=== PATIENT | female | born 1930 | race Hispanic/Latino ===

== ENCOUNTER 2018-08-16 13:43 | Inpatient (IN) | payer MEDICARE ==
[2018-08-16 13:43] VITALS: BMI 28.7
[2018-08-16] MEDS ORDERED: Sodium Chloride 0.9% 1,000 ML IV STA (14:38)
--- NOTE | 2018-08-16 14:51 | ED PDOC ---
HPI: Abdomen Time Seen by Provider: 08/16/18 14:26 Chief Complaint (Nursing): Abdominal Pain Chief Complaint (Provider): Abdominal Pain History Per: Patient History/Exam Limitations: no limitations Onset/Duration Of Symptoms: Days (x3) Location Of Pain/Discomfort: Other (left sided) Associated Symptoms: denies: Fever, Chills, Nausea, Vomiting, Constipation Additional Complaint(s): 87 year old female, with a past medical history of cholecystectomy, ventral hernia repair, and hiatal hernia repair, presents to the ED complaining of constant abdominal pain for 3 days. She denies fever, nausea, vomiting, diarrhea, or constipation. Patient reports she has a morales catheter in place which was changed yesterday. PMD: Beto Jacobs Past Medical History Reviewed: Historical Data, Nursing Documentation, Vital Signs Vital Signs: Last Vital Signs Temp 97.1 F L 08/16/18 13:44 Pulse 77 08/16/18 13:44 Resp 16 08/16/18 13:44 BP 136/76 08/16/18 13:44 Pulse Ox 98 08/16/18 13:44 - Medical History PMH: Anxiety, Arthritis, CAD, CHF, COPD, Depression, Diverticulitis, Gastritis, Hiatal Hernia, HTN, Hypercholesterolemia, Hypothyroidism Denies: HIV, Chronic Kidney Disease, Rheumatoid Arthritis - Surgical History Surgical History: Cholecystectomy, Coronary Stent (x 2), Hernia Repair (x2) Other surgeries: Hysterectomy - Family History Family History: States: Unknown Family Hx - Immunization History Hx Tetanus Toxoid Vaccination: No Hx Influenza Vaccination: No Hx Pneumococcal Vaccination: No - Home Medications Home Medications: Ambulatory Orders Medication Instructions Recorded Allopurinol 300 mg PO DAILY 08/26/15 Carvedilol [Coreg] 5 mg PO DAILY 12/08/15 Cranberry 1 cap PO DAILY 12/08/15 Furosemide [Lasix] 40 mg PO BID 12/08/15 Midodrine [Proamatine] 5 mg PO DAILY 12/08/15 Multivitamin [Multi-Vitamin Daily] 1 tab PO DAILY 12/08/15 Spironolactone [Aldactone] 50 mg PO BID 12/08/15 Aspirin [Aspirin Chewable] 81 mg PO DAILY 08/16/18 Docusate Sodium [Gonzales' 100 mg PO DAILY 08/16/18 Laxative] Prasugrel Hydrochloride [Effient] 5 mg PO DAILY 08/16/18 - Allergies Allergies/Adverse Reactions: Allergies Allergy/AdvReac Type Severity Reaction Status Date / Time metronidazole [From Flagyl] Allergy RASH Verified 08/16/18 13:44 nitrofurantoin Allergy RASH Verified 08/16/18 13:44 [From Macrobid] nitrofurantoin Allergy RASH Verified 08/16/18 13:44 macrocrystalline [From Macrobid] Review of Systems ROS Statement: Except As Marked, All Systems Reviewed And Found Negative Constitutional: Negative for: Fever Gastrointestinal: Positive for: Abdominal Pain. Negative for: Nausea, Vomiting, Diarrhea, Constipation Physical Exam - Reviewed Nursing Documentation Reviewed: Yes Vital Signs Reviewed: Yes - Physical Exam Appears: Positive for: No Acute Distress Head Exam: Positive for: ATRAUMATIC, NORMOCEPHALIC Skin: Positive for: Normal Color, Dry Eye Exam: Positive for: Normal appearance Neck: Positive for: Normal, Painless ROM Cardiovascular/Chest: Positive for: Regular Rate, Rhythm Respiratory: Positive for: Normal Breath Sounds. Negative for: Wheezing, R espiratory Distress Gastrointestinal/Abdominal: Positive for: Tenderness (LLQ). Negative for: Guarding, Rebound Extremity: Positive for: Normal ROM Neurological/Psych: Positive for: Awake, Alert, Normal Tone - Laboratory Results Result Diagrams: 08/18/18 07:30 08/18/18 07:30 - ECG O2 Sat by Pulse Oximetry: 98 (RA) Pulse Ox Interpretation: Normal Medical Decision Making Medical Decision Making: Initial Impression: Abdominal pain Initial Plan: --CT abd/pelvis --ECG --CMP --ED urine dipstick --CBC --PTT --Prothrombin time --Sodium chloride 1000mL IV --Urinalysis Patient has Morales Catheter in place and has clear yellow urine. 15:00 Patient signed out to Dr. hBatia. Pending CT and labs. Scribe Attestation: Documented by Hipolito Fletcher acting as a scribe for Bernarda Mariee MD. Provider Scribe Attestation: All medical record entries made by the Scribe were at my direction and personally dictated by me. I have reviewed the chart and agree that the record accurately reflects my personal performance of the history, physical exam, medical decision making, and the department course for this patient. I have also personally directed, reviewed, and agree with the discharge instructions and disposition. Disposition - Clinical Impression Clinical Impression: UTI (urinary tract infection), Diverticulitis - Disposition Disposition: Transfer of Care Disposition Time: 15:00 Condition: STABLE Patient Signed Over To: Ginna Bhatia
[2018-08-16 15:04] LABS: BASO # 0.1 K/uL (0.0-0.2); BASO % 0.8 % (0.0-2.0); EOS # 0.1 K/uL (0.0-0.7); EOS % 1.3 % (0.0-4.0); HEMOGLOBIN 12.7 g/dL (12.0-16.0); LYMPH # 2.6 K/uL (1.0-4.3); LYMPH % 35.5 % (20.0-40.0); MEAN CELL VOLUME 101.3 fl (81.0-99.0); MEAN CORPUSCULAR HEMOGLOBIN 32.9 pg (27.0-31.0); MEAN CORPUSCULAR HGB CONC 32.5 g/dL (33.0-37.0); MEAN PLATELET VOLUME 10.2 fl (7.2-11.7); MONO # 0.6 K/uL (0.0-0.8); MONO % 8.3 % (0.0-10.0); NEUT % 54.1 % (50.0-75.0); NRBC % 0.1 % (0.0-0.0); RBC 3.85 Mil/uL (3.80-5.20); WHITE BLOOD COUNT 7.4 K/uL (4.8-10.8)
[2018-08-16 15:12] LABS: ALB/GLOB RATIO 1.6 (1.0-2.1); ALBUMIN 5.1 g/dL (3.5-5.0); CALCIUM 10.4 mg/dL (8.4-10.2)
--- NOTE | 2018-08-16 15:15 | ED PDOC ---
- Laboratory Results Result Diagrams: 08/16/18 14:53 08/16/18 14:53 Lab Results: Total Bilirubin 0.7 mg/dl (0.2-1.3) 08/16/18 14:53 AST 22 U/L (14-36) 08/16/18 14:53 ALT 22 U/L (9-52) 08/16/18 14:53 Alkaline Phosphatase 77 U/L (38-126) 08/16/18 14:53 Total Protein 8.4 G/DL (6.3-8.2) H 08/16/18 14:53 Albumin 5.1 g/dL (3.5-5.0) H 08/16/18 14:53 Globulin 3.3 gm/dL (2.2-3.9) 08/16/18 14:53 Albumin/Globulin Ratio 1.6 (1.0-2.1) 08/16/18 14:53 - ECG ECG Rhythm: Positive for: Normal QRS, Normal ST Segment, Sinus Rhythm Rate: 70 O2 Sat by Pulse Oximetry: 98 (RA) Medical Decision Making Medical Decision Makin:00 Patient signed out to this provider from Dr. Mariee. Pending CT scan and labs. 20:06 CT abd/pelvis FINDINGS: LUNG BASES: Scarring at the right lung base. LIVER: Unremarkable. GALLBLADDER AND BILE DUCTS: Status post cholecystectomy. PANCREAS: Unremarkable. SPLEEN: Unremarkable. ADRENAL GLANDS: Unremarkable. KIDNEYS, URETERS, AND BLADDER: The kidneys appear within normal limits. There is no hydronephrosis or hydroureter. No urinary calculi are seen. Calvert catheter within the bladder. STOMACH AND BOWEL: There is thinning of the anterior abdominal wall with small ventral hernia and postsurgical mesh material along the anterior abdominal wall. There is no bowel obstruction. Diverticular changes are present within the sigmoid and descending colon with mild pericolonic stranding and wall thickening at the proximal sigmoid colon suspicious for diverticulitis. APPENDIX: No evidence of acute appendicitis on CT examination. PERITONEUM: No free fluid. No free air. LYMPH NODES: No lymphadenopathy is evident. REPRODUCTIVE: Unremarkable as visualized. VASCULATURE: No evidence of abdominal aortic aneurysm. BONES: Advanced hypertrophic and degenerative changes lumbar spine. IMPRESSION: Scarring right lung base. Status post cholecystectomy. Postsurgical changes anterior abdominal wall. Small ventral hernia. Diverticular changes sigmoid and descending colon with mild diverticulitis suspected at the proximal sigmoid colon. Calvert catheter within the bladder. Hypertrophic and degenerative changes lumbar spine. Clinical correlation advised. Labs demonstrated acute worsening of renal insufficiency DW son findings. LORENZA Jamison and pt admitted to hospital under in his service. DW pt/family plan of care. IV antibiotics, IVF, admission. Scribe Attestation: Documented by Hipolito Fletcher acting as a scribe for Ginna Bhatia MD. Provider Scribe Attestation: All medical record entries made by the Scribe were at my direction and personally dictated by me. I have reviewed the chart and agree that the record accurately reflects my personal performance of the history, physical exam, medical decision making, and the department course for this patient. I have also personally directed, reviewed, and agree with the discharge instructions and disposition. Disposition - Clinical Impression Clinical Impression: UTI (urinary tract infection), Diverticulitis - POA Present On Arrival: Cath Associated UTI - Disposition Disposition: Admitted as In-Patient Disposition Time: 21:00 Condition: FAIR
[2018-08-16 15:20] LABS: PROTHROMBIN TIME 11.8 Seconds (9.8-13.1)
[2018-08-16 15:23] LABS: PARTIAL THROMBOPLASTIN TIME 30.9 Seconds (25.6-37.1)
[2018-08-16] MEDS ORDERED: Iohexol 240 (50 ml) PO STA (15:23)
[2018-08-16] MEDS ORDERED: Iohexol 240 (50 ml) ONE (16:47)
--- NOTE | 2018-08-16 17:06 | CARD ---
APPROVED REPORT Date of service: 08/16/2018 EKG Measurement Heart [id number] <Conclusion> Normal sinus rhythm Normal ECG
[2018-08-16 17:16] LABS: SQUAMOUS EPITHIAL 1 /hpf (0-5); URINE BACTERIA OCC (<OCC); URINE BILIRUBIN NEGATIVE (NEGATIVE); URINE BLOOD NEGATIVE (NEGATIVE); URINE CLARITY SLIGHTY-CLOUDY (Clear); URINE COLOR YELLOW (YELLOW); URINE GLUCOSE (UA) NEG (NEGATIVE); URINE HYALINE CAST 0-2 /hpf (0-2); URINE LEUKOCYTE ESTERASE LARGE Leu/uL (Negative); URINE PROTEIN NEGATIVE (NEGATIVE); URINE UROBILINOGEN 0.2-1.0 mg/dL (0.2-1.0)
[2018-08-16] MEDS ORDERED: Ciprofloxacin 400mg/200ml D5W 400 MG/200 ML BAG IV STA (21:05)
[2018-08-16] MEDS ORDERED: Ciprofloxacin 400mg/200ml D5W 400 MG/200 ML BAG IVPB ONE (21:25)
--- NOTE | 2018-08-17 07:16 | CP.PCM.HP ---
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 Cellulitis of RLE Present on Admission - Present on Admission Any Indicators Present on Admission: Yes Urinary Catheter: Yes Past Patient History - Infectious Disease Hx of Infectious Diseases: None - Past Medical History & Family History Past Medical History?: Yes - Past Social History Smoking Status: Never Smoked - CARDIAC Hx Congestive Heart Failure: Yes Hx Hypercholesterolemia: Yes Hx Hypertension: Yes - PULMONARY Hx Chronic Obstructive Pulmonary Disease (COPD): Yes - NEUROLOGICAL HX Cerebrovascular Accident: No - HEENT Hx Cataracts: Yes - RENAL Hx Chronic Kidney Disease: No - ENDOCRINE/METABOLIC Hx Hypothyroidism: Yes - HEMATOLOGICAL/ONCOLOGICAL Hx Human Immunodeficiency Virus (HIV): No - INTEGUMENTARY Hx Dermatological Problems: Yes - MUSCULOSKELETAL/RHEUMATOLOGICAL Hx Arthritis: Yes Hx Falls: No Hx Rheumatoid Arthritis: No - GASTROINTESTINAL Hx Diverticulitis: Yes Hx Gastritis: Yes - GENITOURINARY/GYNECOLOGICAL Hx Genitourinary Disorders: Yes Hx Hematuria: Yes (history) Hx Urinary Tract Infection: Yes Other/Comment: Calvert catheter - PSYCHIATRIC Hx Anxiety: Yes Hx Depression: Yes Hx Substance Use: No - SURGICAL HISTORY Hx Cholecystectomy: Yes Hx Coronary Stent: Yes (x 2) - ANESTHESIA Hx Anesthesia: Yes Hx Anesthesia Reactions: No Hx Malignant Hyperthermia: No Meds Allergies/Adverse Reactions: Allergies Allergy/AdvReac Type Severity Reaction Status Date / Time metronidazole [From Flagyl] Allergy RASH Verified 08/16/18 13:44 nitrofurantoin Allergy RASH Verified 08/16/18 13:44 [From Macrobid] nitrofurantoin Allergy RASH Verified 08/16/18 13:44 macrocrystalline [From Macrobid] Results - Vital Signs Recent Vital Signs: Last Vital Signs Temp 97.6 F 08/17/18 01:16 Pulse 64 08/17/18 01:16 Resp 18 08/17/18 01:16 BP 125/77 08/17/18 01:16 Pulse Ox 97 08/17/18 01:16 - Labs Result Diagrams: 08/16/18 14:53 08/16/18 14:53 Labs: Laboratory Results - last 24 hr 08/16/18 08/16/18 08/16/18 14:53 14:53 14:53 WBC 7.4 RBC 3.85 Hgb 12.7 Hct 39.0 MCV 101.3 H D MCH 32.9 H MCHC 32.5 L RDW 16.0 H Plt Count 74 L D MPV 10.2 Neut % (Auto) 54.1 Lymph % (Auto) 35.5 Ashe % (Auto) 8.3 Eos % (Auto) 1.3 Baso % (Auto) 0.8 Neut # (Auto) 4.0 Lymph # (Auto) 2.6 Ashe # (Auto) 0.6 Eos # (Auto) 0.1 Baso # (Auto) 0.1 PT 11.8 INR 1.0 APTT 30.9 Sodium 135 Potassium 4.1 Chloride 98 Carbon Dioxide 20 L Anion Gap 21 H BUN 74 H Creatinine 2.1 H Est GFR ( Amer) 27 Est GFR (Non-Af Amer) 22 Random Glucose 140 H Calcium 10.4 H Total Bilirubin 0.7 AST 22 ALT 22 Alkaline Phosphatase 77 Total Protein 8.4 H Albumin 5.1 H Globulin 3.3 Albumin/Globulin Ratio 1.6 Urine Color Urine Clarity Urine pH Ur Specific Cecil Urine Protein Urine Glucose (UA) Urine Ketones Urine Blood Urine Nitrate Urine Bilirubin Urine Urobilinogen Ur Leukocyte Esterase Urine RBC (Auto) Urine Microscopic WBC Ur Squamous Epith Cells Urine Bacteria Hyaline Casts 08/16/18 17:00 WBC RBC Hgb Hct MCV MCH MCHC RDW Plt Count MPV Neut % (Auto) Lymph % (Auto) Ashe % (Auto) Eos % (Auto) Baso % (Auto) Neut # (Auto) Lymph # (Auto) Ashe # (Auto) Eos # (Auto) Baso # (Auto) PT INR APTT Sodium Potassium Chloride Carbon Dioxide Anion Gap BUN Creatinine Est GFR ( Amer) Est GFR (Non-Af Amer) Random Glucose Calcium Total Bilirubin AST ALT Alkaline Phosphatase Total Protein Albumin Globulin Albumin/Globulin Ratio Urine Color Yellow Urine Clarity Slighty-cloudy Urine pH 6.0 Ur Specific Cecil 1.010 Urine Protein Negative Urine Glucose (UA) Neg Urine Ketones Negative Urine Blood Negative Urine Nitrate Positive H Urine Bilirubin Negative Urine Urobilinogen 0.2-1.0 Ur Leukocyte Esterase Large Urine RBC (Auto) 3 Urine Microscopic WBC 68 H Ur Squamous Epith Cells 1 Urine Bacteria Occ H Hyaline Casts 0-2 Assessment & Plan (1) Diverticulitis Status: Acute (2) Essential (primary) hypertension Status: Acute (3) Generalized anxiety disorder Status: Acute
[2018-08-17 08:03] LABS: URINE BACTERIA RARE (<OCC); URINE BILIRUBIN NEGATIVE (NEGATIVE); URINE BLOOD NEGATIVE (NEGATIVE); URINE CLARITY CLEAR (Clear); URINE COLOR YELLOW (YELLOW); URINE GLUCOSE (UA) NEG (NEGATIVE); URINE LEUKOCYTE ESTERASE SMALL Leu/uL (Negative); URINE PROTEIN NEGATIVE (NEGATIVE); URINE UROBILINOGEN 0.2-1.0 mg/dL (0.2-1.0)
[2018-08-17] MEDS: Ciprofloxacin 400mg/200ml D5W 400 MG/200 ML BAG IVPB SCH ×2 (08:41→20:15)
--- NOTE | 2018-08-17 10:42 | PQF ---
PROVIDER RESPONSE TEXT: Provider was unable to determine a response for this query. REVIEWER QUERY TEXT: Conflicting Documentation Clarification A single mention of: Catheter Associated UTI is documented in the ER record and then the dx. is dropp ed. Please document if the condition is: -- Confirmed and current -- Confirmed, treated and resolved -- Ruled out -- Other, please specify H and P includes: admitted with UTI and diverticulitis The patient's Clinical Indicators include: --- Query created by: Yareli Barajas on 08/17/2018 9:56 AM Electronically signed by: Beto Jamison MD 08/17/2018 10:39 AM
--- NOTE | 2018-08-17 10:58 | CT ---
Date of service: 08/16/2018 PROCEDURE: CT Abdomen and Pelvis with contrast HISTORY: Left lower quadrant pain. COMPARISON: 06/01/2016. CT abdomen and pelvis. TECHNIQUE: Oral contrast only. Radiation dose: Total exam DLP = <inf_radiation_dlp> mGy-cm. This CT exam was performed using one or more of the following dose reduction techniques: Automated exposure control, adjustment of the mA and/or kV according to patient size, and/or use of iterative reconstruction technique. FINDINGS: LOWER THORAX: Unremarkable. LIVER: Unremarkable. No gross lesion or ductal dilatation. GALLBLADDER AND BILE DUCTS: Unremarkable. PANCREAS: Unremarkable. No gross lesion or ductal dilatation. SPLEEN: Unremarkable. ADRENALS: Unremarkable. No mass. KIDNEYS AND URETERS: Unremarkable. No hydronephrosis. No solid mass. VASCULATURE: Unremarkable. No aortic aneurysm. Atherosclerotic calcification and mural plaque present. Findings are seen throughout the aorta which is non aneurysmal. Calcified iliac vessels also identified. BOWEL: Acute diverticulitis limited to a short segment of the distal descending colon and adjacent sigmoid. APPENDIX: No abnormalities to suggest acute appendicitis. No right lower quadrant inflammatory processes identified. PERITONEUM: Unremarkable. No free fluid. No free air. LYMPH NODES: Unremarkable. No enlarged lymph nodes. BLADDER: Calvert catheter identified in a decompressed urinary bladder. No abnormalities identified with respect to the bladder wall and intraluminal contents. REPRODUCTIVE: Prior hysterectomy. BONES: No acute fracture. Multilevel degenerative change. OTHER FINDINGS: None. IMPRESSION: Acute sigmoid diverticulitis. No evidence of associated loculated air, free air, free fluid or drainable collection. Additional benign and/or incidental findings described above. Concordant results (preliminary interpretation) provided by [employer]. Procedure Completed: 19:15. Preliminary Report: Interpreted and electronically signed: 20:06. Final Interpretation: 10:56. August 17, 2018.
[2018-08-17] MEDS: Enoxaparin 30 mg Syringe SC SCH (11:13)
[2018-08-17] MEDS: Sodium Chloride 0.9% 1,000 ML IV SCH (13:36)
--- NOTE | 2018-08-17 16:54 | RAD ---
Date of service: 08/17/2018 PROCEDURE: Radiographs of the Chest and Left Ribs. HISTORY: L ribs pain COMPARISON: 12/06/2017. Two-view chest. TECHNIQUE: Frontal radiograph of the chest and multiple oblique radiographs of the left ribs were obtained. 4 views obtained. FINDINGS: LEFT RIBS: No fracture or focal lesion visualized. LUNGS: Clear. PLEURA: No pneumothorax or pleural fluid. CARDIOVASCULAR: Normal cardiac size. No pulmonary vascular congestion. Tortuous, densely calcified thoracic aorta. OTHER FINDINGS: None. IMPRESSION: Unremarkable radiographs of the chest and left ribs. No left rib fracture.
[2018-08-18] MEDS: Sodium Chloride 0.9% 1,000 ML IV SCH ×2 (04:24→04:56)
--- NOTE | 2018-08-18 06:21 | CON ---
DATE: 08/17/2018 REFERRING PHYSICIAN: Beto Jamison MD REASON FOR CONSULTATION: Abdominal pain. HISTORY OF PRESENT ILLNESS: This is an 87-year-old female, who is brought in for abdominal pain and discomfort in the left lower quadrant. Pain is improving. Diarrhea is improving as well but he still has some discomfort and fullness. She is feeling better, lying in bed comfortably. No apparent distress. PAST MEDICAL HISTORY: As above. PAST SURGICAL HISTORY: As above. MEDICATIONS: Have been reviewed. REVIEW OF SYSTEMS: All other systems have been reviewed and negative apart from the HPI. PHYSICAL EXAMINATION: VITAL SIGNS: Here in the hospital, grossly unremarkable. GENERAL: This is a pleasant elderly female, lying in bed comfortably, in no apparent distress. HEENT: Head: Normocephalic and atraumatic. Eyes: Pupils are equally reactive to light bilaterally. No conjunctival pallor or icterus. NECK: Supple. Normal range of motion. No lymphadenopathy appreciated. LUNGS: Coarse breath sounds bilaterally. HEART: S1 and S2. Regular rate and rhythm. No murmurs appreciated. ABDOMEN: Soft and nontender. Bowel sounds present. Some discomfort in the left lower quadrant. No rebound. No guarding. RECTAL: Deferred. EXTREMITIES: Pulses felt bilaterally. SKIN: Warm, dry and intact. NEUROLOGIC: A and O x3. LABORATORY DATA: Labs and radiology have been reviewed. WBC 7.4. CAT scan shows sigmoid diverticulitis. ASSESSMENT AND PLAN: This is an 87-year-old female with sigmoid diverticulitis. Antibiotics for now. Advance diet as tolerated. Outpatient colonoscopy. Thank you for the consult. Lanre Montague MD/ PhD cc: Beto Jamison MD
[2018-08-18 08:51] LABS: HEMOGLOBIN 11.7 g/dL (12.0-16.0); MEAN CELL VOLUME 101.7 fl (81.0-99.0); MEAN CORPUSCULAR HEMOGLOBIN 33.8 pg (27.0-31.0); MEAN CORPUSCULAR HGB CONC 33.3 g/dL (33.0-37.0); RBC 3.47 Mil/uL (3.80-5.20); WHITE BLOOD COUNT 3.9 K/uL (4.8-10.8)
[2018-08-18 09:00] LABS: CALCIUM 9.8 mg/dL (8.4-10.2)
--- NOTE | 2018-08-18 09:17 | CP.PCM.PN ---
Subjective - Date & Time of Evaluation Date of Evaluation: 08/18/18 Time of Evaluation: 08:50 - Subjective Subjective: The patient was found comfortably resting in bed having finished her liquid breakfast. She denies any nausea vomiting but continues to experienced left lower quadrant discomfort. She awaits a GI evaluation. She denied any chills or fever and does not have leukocytosis. With hydration her BUN/creatinine have significantly improved. Her vital signs were stable and she tolerates current treatment. Patient has declined Plavix yesterday. She is on DVT prophylaxis with Lovenox. Objective - Vital Signs/Intake and Output Vital Signs (last 24 hours): Temp Pulse Resp BP Pulse Ox 98.2 F 63 18 116/70 96 08/18/18 08:25 08/18/18 08:25 08/18/18 08:25 08/18/18 08:25 08/18/18 08:25 - Medications Medications: Current Medications Acetaminophen (Tylenol 325mg Tab) 650 mg PO Q6 PRN PRN Reason: Pain, moderate (4-7) Last Admin: 08/17/18 23:37 Dose: 650 mg Aspirin (Aspirin Chewable) 81 mg PO DAILY [facility] Last Admin: 08/17/18 10:57 Dose: 81 mg Clopidogrel Bisulfate (Plavix) 75 mg PO DAILY [facility] Last Admin: 08/17/18 19:00 Dose: Not Given Enoxaparin Sodium (Lovenox) 30 mg SC DAILY [facility]; Protocol Last Admin: 08/17/18 11:13 Dose: 30 mg Ciprofloxacin (Cipro 400mg/200ml Dsw) 400 mg in 200 mls @ 200 mls/hr IVPB Q12 [facility]; Protocol Last Admin: 08/17/18 20:15 Dose: 200 mls/hr Sodium Chloride (Sodium Chloride 0.9%) 1,000 mls @ 75 mls/hr IV .[id number] [facility] Stop: 08/18/18 13:23 Last Admin: 08/18/18 04:56 Dose: Not Given - Labs Labs: 08/18/18 07:30 08/18/18 07:30 PT 11.8 Seconds (9.8-13.1) 08/16/18 14:53 INR 1.0 08/16/18 14:53 APTT 30.9 Seconds (25.6-37.1) 08/16/18 14:53
[2018-08-18] MEDS: Ciprofloxacin 400mg/200ml D5W 400 MG/200 ML BAG IVPB SCH ×2 (09:34→21:23)
[2018-08-18] MEDS: Enoxaparin 30 mg Syringe SC SCH (09:35)
[2018-08-19] MEDS: Ciprofloxacin 400mg/200ml D5W 400 MG/200 ML BAG IVPB SCH ×2 (09:50→21:24)
[2018-08-19] MEDS: Enoxaparin 30 mg Syringe SC SCH (09:50)
--- NOTE | 2018-08-19 12:58 | CP.PCM.PN ---
Subjective - Date & Time of Evaluation Date of Evaluation: 08/19/18 Time of Evaluation: 11:50 - Subjective Subjective: Has developed a rash on the left flank as well as left side of the abdomen. The appearance of the rash is strongly suggestive of zoster. Patient's vital signs are stable and the abdominal pain is less pronounced. She tolerates oral feedings well. I have requested Dr. Simon to evaluate and manage her zoster rash. Objective - Vital Signs/Intake and Output Vital Signs (last 24 hours): Temp Pulse Resp BP Pulse Ox 98.3 F 73 18 115/72 94 L 08/19/18 11:31 08/19/18 07:52 08/19/18 07:52 08/19/18 07:52 08/19/18 07:52 - Medications Medications: Current Medications Acetaminophen (Tylenol 325mg Tab) 650 mg PO Q6 PRN PRN Reason: Pain, moderate (4-7) Last Admin: 08/19/18 11:31 Dose: 650 mg Aspirin (Aspirin Chewable) 81 mg PO DAILY [facility] Last Admin: 08/19/18 09:50 Dose: 81 mg Clopidogrel Bisulfate (Plavix) 75 mg PO DAILY [facility] Last Admin: 08/19/18 09:51 Dose: 75 mg Enoxaparin Sodium (Lovenox) 30 mg SC DAILY [facility]; Protocol Last Admin: 08/19/18 09:50 Dose: 30 mg Ciprofloxacin (Cipro 400mg/200ml Dsw) 400 mg in 200 mls @ 200 mls/hr IVPB Q12 [facility]; Protocol Last Admin: 08/19/18 09:50 Dose: 200 mls/hr - Labs Labs: 08/18/18 07:30 08/18/18 07:30 PT 11.8 Seconds (9.8-13.1) 08/16/18 14:53 INR 1.0 08/16/18 14:53 APTT 30.9 Seconds (25.6-37.1) 08/16/18 14:53
--- NOTE | 2018-08-19 13:00 | CP.PCM.CON ---
History of Present Illness - History of Present Illness History of Present Illness: 87 year old female, with a past medical history of cholecystectomy, ventral hernia repair, and hiatal hernia repair, presents to the ED complaining of constant abdominal pain for 3 days. She was found to have diverticulitis by CT and today c/o rash on left side of upper abdomen - Medical History PMH: Anxiety, Arthritis, CAD, CHF, COPD, Depression, Diverticulitis, Gastritis, Hiatal Hernia, HTN, Hypercholesterolemia, Hypothyroidism Denies: HIV, Chronic Kidney Disease, Rheumatoid Arthritis - Surgical History Surgical History: Cholecystectomy, Coronary Stent (x 2), Hernia Repair (x2) Other surgeries: Hysterectomy Review of Systems - Review of Systems All systems: reviewed and no additional remarkable complaints except - Constitutional Constitutional: As Per HPI - EENT Eyes: absent: As Per HPI, Blind Spots, Blurred Vision, Change in Vision, Decreased Night Vision, Diplopia, Discharge, Dry Eye, Exophthalmos, Floaters, Irritation, Itchy Eyes, Loss of Peripheral Vision, Pain, Photophobia, Requires Corrective Lenses, Sees Flashes, Spots in Vision, Tunnel Vision, Other Visual Disturbances, Loss of Vision, Other Ears: absent: As Per HPI, Decreased Hearing, Ear Discharge, Ear Pain, Tinnitus, Abnormal Hearing, Disequilibrium, Dizziness, Other Nose/Mouth/Throat: absent: As Per HPI, Epistaxis, Nasal Congestion, Nasal Discharge, Nasal Obstruction, Nasal Trauma, Nose Pain, Post Nasal Drip, Sinus Pain, Sinus Pressure, Bleeding Gums, Change in Voice, Dental Pain, Dry Mouth, Dysphagia, Halitosis, Hoarsness, Lip Swelling, Mouth Lesions, Mouth Pain, Odynophagia, Sore Throat, Throat Swelling, Tongue Swelling, Facial Pain, Neck Pain, Neck Mass, Other - Breasts Breasts: absent: As Per HPI, Change in Shape, Mass, Pain, Nipple Discharge, Nipple Inversion, Skin Changes, Swelling, Other - Cardiovascular Cardiovascular: As Per HPI - Respiratory Respiratory: absent: As Per HPI, Cough, Dyspnea, Hemoptysis, Dyspnea on Exertion, Wheezing, Snoring, Stridor, Pain on Inspiration, Chest Congestion, Excessive Mucous Production, Change in Mucous Color, Pain with Coughing, Other - Gastrointestinal Gastrointestinal: As Per HPI, Abdominal Pain - Genitourinary Genitourinary: As Per HPI - Reproductive: Female Reproductive:Female: absent: As Per HPI, Amenorrhea, Amenorrhea/ Control, Currently Menstual, Cycle <21 Days, Cycle >35 Days, Cycle Variable, Menses 1-7 Days, Menses >/= 8 Days, Menses Variable, Cycle > 4 Weeks Between, No Menses for 6 Months, Heavy Menses, Light Menses, Normal Menses, Spotting Between Cycles, S/P Hysterectomy, Menopausal, Post Menopausal, Premenarche, Abnormal Vaginal Bleeding, Dysmenorrhea, Dyspareunia, Genital Lesions, Genital Pruritis, Pelvic Pain, Prolapse Symptoms, Sexual Dysfunction, Vaginal Discharge, Vaginal Dryness, Vaginal Odor, Vaginal Pruritis, Other - Menstruation Menstruation: absent: As Per HPI, Amenorrhea, Amenorrhea/ Control, Currently Menstual, Cycle <21 Days, Cycle >35 Days, Cycle Variable, Menses 1-7 Days, Menses >/= 8 Days, Menses Variable, Cycle > 4 Weeks Between, No Menses for 6 Months, Heavy Menses, Light Menses, Normal Menses, Spotting Between Cycles, S/P Hysterectomy, Menopausal, Post Menopausal, Premenarche, Abnormal Vaginal Bleeding, Dysmenorrhea, Other - Musculoskeletal Musculoskeletal: absent: As Per HPI, Abnormal Gait, Arthralgias, Atrophy, Back Pain, Deformity, Joint Swelling, Limited Range of Motion, Loss of Height, Muscle Cramps, Muscle Weakness, Myalgias, Neck Pain, Numbness, Radiating Pain into Limb, Stiffness, Tingling, Other - Integumentary Integumentary: As Per HPI, Rash, Skin Pain - Neurological Neurological: absent: As Per HPI, Abnormal Gait, Abnormal Hearing, Abnormal Movements, Abnormal Speech, Behavioral Changes, Burning Sensations, Confusion, Convulsions, Disequilibrium, Dizziness, Numbness, Focal Weakness, Frequent Falls, Headaches, Lack of Coordination, Loss of Vision, Memory Loss, Paresthesias, Radicular Pain, Restless Legs, Sensory Deficit, Syncope, Tingling, Tremor, Vertigo, Weakness, Other Visual Disturbances, Other - Psychiatric Psychiatric: absent: As Per HPI, Abnormal Sleep Pattern, Anhedonia, Anxiety, Auditory Hallucinations, Behavioral Changes, Change in Appetite, Change in Libido, Confusion, Depression, Difficulty Concentrating, Hallucinations, Homicidal Ideation, Hopelessness, Irritability, Memory Loss, Mood Swings, Panic Attacks, Paranoia, Suicidal Ideation, Visual Hallucinations, Tactile Hallucinations, Other - Endocrine Endocrine: absent: As Per HPI, Change in Body Appearance, Change in Libido, Cold Intolorance, Deepening of Voice, Excessive Sweating, Fatigue, Flushing, Heat Intolorance, Increase in Ring/Shoe/Hat Size, Palpitations, Polydipsia, Polyphagia, Polyuria, Other - Hematologic/Lymphatic Hematologic: absent: As Per HPI, Easy Bleeding, Easy Bruising, Lymphadenopathy, Other Past Patient History - Infectious Disease Hx of Infectious Diseases: None - Past Medical History & Family History Past Medical History?: Yes - Past Social History Smoking Status: Never Smoked - CARDIAC Hx Congestive Heart Failure: Yes Hx Hypercholesterolemia: Yes Hx Hypertension: Yes - PULMONARY Hx Chronic Obstructive Pulmonary Disease (COPD): Yes - NEUROLOGICAL HX Cerebrovascular Accident: No - HEENT Hx Cataracts: Yes - RENAL Hx Chronic Kidney Disease: No - ENDOCRINE/METABOLIC Hx Hypothyroidism: Yes - HEMATOLOGICAL/ONCOLOGICAL Hx Human Immunodeficiency Virus (HIV): No - INTEGUMENTARY Hx Dermatological Problems: Yes - MUSCULOSKELETAL/RHEUMATOLOGICAL Hx Arthritis: Yes Hx Falls: No Hx Rheumatoid Arthritis: No - GASTROINTESTINAL Hx Diverticulitis: Yes Hx Gastritis: Yes - GENITOURINARY/GYNECOLOGICAL Hx Genitourinary Disorders: Yes Hx Hematuria: Yes (history) Hx Urinary Tract Infection: Yes Other/Comment: Calvert catheter - PSYCHIATRIC Hx Anxiety: Yes Hx Depression: Yes Hx Substance Use: No - SURGICAL HISTORY Hx Cholecystectomy: Yes Hx Coronary Stent: Yes (x 2) - ANESTHESIA Hx Anesthesia: Yes Hx Anesthesia Reactions: No Hx Malignant Hyperthermia: No Meds Allergies/Adverse Reactions: Allergies Allergy/AdvReac Type Severity Reaction Status Date / Time metronidazole [From Flagyl] Allergy RASH Verified 08/16/18 13:44 nitrofurantoin Allergy RASH Verified 08/16/18 13:44 [From Macrobid] nitrofurantoin Allergy RASH Verified 08/16/18 13:44 macrocrystalline [From Macrobid] - Medications Medications: Current Medications Acetaminophen (Tylenol 325mg Tab) 650 mg PO Q6 PRN PRN Reason: Pain, moderate (4-7) Last Admin: 08/19/18 11:31 Dose: 650 mg Acyclovir (Zovirax) 800 mg PO 5XD [facility]; Protocol Aspirin (Aspirin Chewable) 81 mg PO DAILY [facility] Last Admin: 03/31/19 09:50 Dose: 81 mg Clopidogrel Bisulfate (Plavix) 75 mg PO DAILY [facility] Last Admin: 08/19/18 09:51 Dose: 75 mg Enoxaparin Sodium (Lovenox) 30 mg SC DAILY [facility]; Protocol Last Admin: 08/19/18 09:50 Dose: 30 mg Ciprofloxacin (Cipro 400mg/200ml Dsw) 400 mg in 200 mls @ 200 mls/hr IVPB Q12 [facility]; Protocol Last Admin: 08/19/18 09:50 Dose: 200 mls/hr Metronidazole (Flagyl 500mg/100ml Ns) 100 mls @ 100 mls/hr IVPB Q8 [facility]; Protocol Physical Exam - Constitutional Appears: Non-toxic, No Acute Distress, Chronically Ill - Head Exam Head Exam: ATRAUMATIC, NORMAL INSPECTION, NORMOCEPHALIC - Eye Exam Eye Exam: EOMI, PERRL Pupil Exam: NORMAL ACCOMODATION - ENT Exam ENT Exam: Mucous Membranes Dry, Normal External Ear Exam - Neck Exam Neck exam: Negative for: Lymphadenopathy - Respiratory Exam Respiratory Exam: Decreased Breath Sounds, Clear to Auscultation Bilateral - Cardiovascular Exam Cardiovascular Exam: REGULAR RHYTHM, +S1, +S2 - GI/Abdominal Exam GI & Abdominal Exam: Diminished Bowel Sounds, Distended, Guarding, Soft, Tenderness. absent: Organomegaly, Pulsatile Mass, Rebound, Rigid - Rectal Exam Rectal Exam: Deferred - Exam Exam: NORMAL INSPECTION - Extremities Exam Extremities exam: Negative for: pedal edema - Back Exam Back exam: absent: CVA tenderness (L), CVA tenderness (R), paraspinal tenderness - Neurological Exam Neurological exam: Alert, CN II-XII Intact, Oriented x3, Reflexes Normal - Psychiatric Exam Psychiatric exam: Depressed - Skin Skin Exam: Rash Additional comments: rash in dermatomal distrib left abd consistent with VZV Results - Vital Signs Recent Vital Signs: Last Vital Signs Temp 98.3 F 08/19/18 11:31 Pulse 73 08/19/18 07:52 Resp 18 08/19/18 07:52 BP 115/72 08/19/18 07:52 Pulse Ox 94 L 08/19/18 07:52 - Labs Result Diagrams: 08/18/18 07:30 08/18/18 07:30 Assessment & Plan (1) Varicella-zoster infection Status: Acute (2) Shingles Status: Acute (3) Shingles outbreak Status: Acute (4) Diverticulitis Status: Acute - Assessment and Plan (Free Text) Assessment: cont IV antibiotics pain management isolation for VZV add Acyclovir PO
--- NOTE | 2018-08-19 14:40 | CP.PCM.PN ---
Subjective - Date & Time of Evaluation Date of Evaluation: 08/19/18 Time of Evaluation: 12:30 - Subjective Subjective: rash on abdomen Objective - Vital Signs/Intake and Output Vital Signs (last 24 hours): Temp Pulse Resp BP Pulse Ox 98.3 F 73 18 115/72 94 L 08/19/18 11:31 08/19/18 07:52 08/19/18 07:52 08/19/18 07:52 08/19/18 07:52 - Medications Medications: Current Medications Acetaminophen (Tylenol 325mg Tab) 650 mg PO Q6 PRN PRN Reason: Pain, moderate (4-7) Last Admin: 08/19/18 11:31 Dose: 650 mg Acyclovir (Zovirax) 800 mg PO 5XD [facility]; Protocol Aspirin (Aspirin Chewable) 81 mg PO DAILY [facility] Last Admin: 08/19/18 09:50 Dose: 81 mg Clopidogrel Bisulfate (Plavix) 75 mg PO DAILY [facility] Last Admin: 08/19/18 09:51 Dose: 75 mg Enoxaparin Sodium (Lovenox) 30 mg SC DAILY [facility]; Protocol Last Admin: 08/19/18 09:50 Dose: 30 mg Ciprofloxacin (Cipro 400mg/200ml Dsw) 400 mg in 200 mls @ 200 mls/hr IVPB Q12 [facility]; Protocol Last Admin: 08/19/18 09:50 Dose: 200 mls/hr Metronidazole (Flagyl 500mg/100ml Ns) 100 mls @ 100 mls/hr IVPB Q8 [facility]; Protocol - Labs Labs: 08/18/18 07:30 08/18/18 07:30 PT 11.8 Seconds (9.8-13.1) 08/16/18 14:53 INR 1.0 08/16/18 14:53 APTT 30.9 Seconds (25.6-37.1) 08/16/18 14:53 - Head Exam Head Exam: NORMOCEPHALIC - Respiratory Exam Respiratory Exam: Clear to Ausculation Bilateral, NORMAL BREATHING PATTERN - Cardiovascular Exam Cardiovascular Exam: REGULAR RHYTHM - GI/Abdominal Exam GI & Abdominal Exam: Soft, Tenderness, Normal Bowel Sounds Additional comments: skin on abdomen with erythema Assessment and Plan - Assessment and Plan (Free Text) Assessment: 87 yo female with diverticulitis abx ? shingles
[2018-08-19] MEDS: metroNIDAZOLE 500mg/100ml NS 100 ML IVPB SCH ×3 (17:13→17:45)
--- NOTE | 2018-08-20 07:30 | PQF ---
PROVIDER RESPONSE TEXT: Sacral ulcer ruled out REVIEWER QUERY TEXT: Pressure Ulcer Type Sacral Pressure ulcer is documented in a Physician order: reason for exam: Sacral Decubiti ; versus t he 08/17 supervisory investigative specialistsupervisor [place] :Sacrum clean and intact. Please clarify if the Pressure Ulcer is ruled in or ruled out. If ruled in Stage of the Pressure Ulcer. -- Other explanation of clinical finding Stage of each pressure ulcer (National Pressure Ulcer Advisory Panel definitions): -- Stage I: Intact skin with non-blanchable redness of a localized area -- Stage II: Partial thickness skin loss involving dermis with a shallow open ulcer or an open serum -filled blister -- Stage III: Full thickness skin loss involving damage or necrosis of subcutaneous tissue -- Stage IV: Full thickness skin loss with exposed bone, tendon or muscle -- Unstageable: Full thickness tissue loss in which the base of the ulcer is covered by slough and/o r eschar in the wound bed The patient's Clinical Indicators include: --- Query created by: Yareli Barajas on 08/17/2018 3:17 PM Electronically signed by: Beto Jamison MD 08/20/2018 7:28 AM
[2018-08-20] MEDS: Enoxaparin 30 mg Syringe SC SCH (10:30)
[2018-08-20] MEDS: Ciprofloxacin 400mg/200ml D5W 400 MG/200 ML BAG IVPB SCH ×2 (10:31→20:28)
--- NOTE | 2018-08-20 14:03 | CP.PCM.PN ---
Subjective - Date & Time of Evaluation Date of Evaluation: 08/20/18 Time of Evaluation: 10:00 - Subjective Subjective: pt resting in bed rash from Shingles persists but less pain is present but slightly better pt is on isolation Objective - Vital Signs/Intake and Output Vital Signs (last 24 hours): Temp Pulse Resp BP Pulse Ox 97.8 F 70 20 123/76 96 08/20/18 08:23 08/20/18 08:23 08/20/18 08:23 08/20/18 08:23 08/20/18 08:23 Intake and Output: 08/20/18 08/20/18 06:59 18:59 Intake Total 800 Output Total 1300 Balance -500 - Medications Medications: Current Medications Acetaminophen (Tylenol 325mg Tab) 650 mg PO Q6 PRN PRN Reason: Pain, moderate (4-7) Last Admin: 08/20/18 10:32 Dose: 650 mg Acyclovir (Zovirax) 800 mg PO 5XD [facility]; Protocol Last Admin: 08/20/18 12:40 Dose: 800 mg Aspirin (Aspirin Chewable) 81 mg PO DAILY [facility] Last Admin: 08/20/18 10:30 Dose: 81 mg Clopidogrel Bisulfate (Plavix) 75 mg PO DAILY [facility] Last Admin: 08/20/18 10:31 Dose: 75 mg Enoxaparin Sodium (Lovenox) 30 mg SC DAILY [facility]; Protocol Last Admin: 08/20/18 10:30 Dose: 30 mg Ciprofloxacin (Cipro 400mg/200ml Dsw) 400 mg in 200 mls @ 200 mls/hr IVPB Q12 [facility]; Protocol Last Admin: 08/20/18 10:31 Dose: Not Given - Labs Labs: 08/18/18 07:30 08/18/18 07:30 PT 11.8 Seconds (9.8-13.1) 08/16/18 14:53 INR 1.0 08/16/18 14:53 APTT 30.9 Seconds (25.6-37.1) 08/16/18 14:53 Assessment and Plan (1) Diverticulitis Status: Acute (2) Essential (primary) hypertension Status: Acute (3) Generalized anxiety disorder Status: Acute (4) Shingles Status: Acute (5) Varicella-zoster infection Status: Acute
[2018-08-21 06:54] LABS: HEMOGLOBIN 12.3 g/dL (12.0-16.0); MEAN CELL VOLUME 102.5 fl (81.0-99.0); MEAN CORPUSCULAR HEMOGLOBIN 33.2 pg (27.0-31.0); MEAN CORPUSCULAR HGB CONC 32.4 g/dL (33.0-37.0); RBC 3.7 Mil/uL (3.80-5.20); RED CELL DISTRIBUTION WIDTH 15.9 % (11.5-14.5); WHITE BLOOD COUNT 4.3 K/uL (4.8-10.8)
[2018-08-21 07:10] LABS: CALCIUM 9.7 mg/dL (8.4-10.2)
--- NOTE | 2018-08-21 10:13 | CP.PCM.PN ---
Subjective - Date & Time of Evaluation Date of Evaluation: 08/21/18 Time of Evaluation: 10:12 - Subjective Subjective: no overnight events Objective - Vital Signs/Intake and Output Vital Signs (last 24 hours): Temp Pulse Resp BP Pulse Ox 98.0 F 78 20 127/67 96 08/21/18 08:38 08/21/18 08:38 08/21/18 08:38 08/21/18 08:38 08/21/18 08:38 Intake and Output: 08/21/18 08/21/18 06:59 18:59 Intake Total 400 Output Total 400 Balance 0 - Medications Medications: Current Medications Acetaminophen (Tylenol 325mg Tab) 650 mg PO Q6 PRN PRN Reason: Pain, moderate (4-7) Last Admin: 08/20/18 23:09 Dose: 650 mg Acyclovir (Zovirax) 800 mg PO 5XD [facility]; Protocol Last Admin: 08/21/18 05:29 Dose: 800 mg Aspirin (Aspirin Chewable) 81 mg PO DAILY [facility] Last Admin: 08/20/18 10:30 Dose: 81 mg Clopidogrel Bisulfate (Plavix) 75 mg PO DAILY [facility] Last Admin: 08/20/18 10:31 Dose: 75 mg Enoxaparin Sodium (Lovenox) 30 mg SC DAILY [facility]; Protocol Last Admin: 08/20/18 10:30 Dose: 30 mg Ciprofloxacin (Cipro 400mg/200ml Dsw) 400 mg in 200 mls @ 200 mls/hr IVPB Q12 [facility]; Protocol Last Admin: 08/20/18 20:28 Dose: 200 mls/hr - Labs Labs: 08/21/18 06:10 08/21/18 06:10 PT 11.8 Seconds (9.8-13.1) 08/16/18 14:53 INR 1.0 08/16/18 14:53 APTT 30.9 Seconds (25.6-37.1) 08/16/18 14:53 - Head Exam Head Exam: NORMOCEPHALIC - Neck Exam Neck Exam: Normal Inspection - Respiratory Exam Respiratory Exam: Clear to Ausculation Bilateral, NORMAL BREATHING PATTERN - Cardiovascular Exam Cardiovascular Exam: REGULAR RHYTHM - GI/Abdominal Exam GI & Abdominal Exam: Soft, Normal Bowel Sounds Assessment and Plan - Assessment and Plan (Free Text) Assessment: 87 yo female with diverticulitis resolving diverticulitis dc planning once able
[2018-08-21] MEDS: Enoxaparin 30 mg Syringe SC SCH (10:16)
[2018-08-21] MEDS: Ciprofloxacin 400mg/200ml D5W 400 MG/200 ML BAG IVPB SCH ×2 (10:16→21:37)
--- NOTE | 2018-08-21 11:28 | CP.PCM.PN ---
Subjective - Date & Time of Evaluation Date of Evaluation: 08/21/18 Time of Evaluation: 09:00 - Subjective Subjective: afebrile less pain no fever Objective - Vital Signs/Intake and Output Vital Signs (last 24 hours): Temp Pulse Resp BP Pulse Ox 98.0 F 78 20 127/67 96 08/21/18 08:38 08/21/18 08:38 08/21/18 08:38 08/21/18 08:38 08/21/18 08:38 Intake and Output: 08/21/18 08/21/18 06:59 18:59 Intake Total 400 Output Total 400 Balance 0 - Medications Medications: Current Medications Acetaminophen (Tylenol 325mg Tab) 650 mg PO Q6 PRN PRN Reason: Pain, moderate (4-7) Last Admin: 08/20/18 23:09 Dose: 650 mg Acyclovir (Zovirax) 800 mg PO 5XD [facility]; Protocol Last Admin: 08/21/18 10:16 Dose: 800 mg Aspirin (Aspirin Chewable) 81 mg PO DAILY [facility] Last Admin: 08/21/18 10:16 Dose: 81 mg Clopidogrel Bisulfate (Plavix) 75 mg PO DAILY [facility] Last Admin: 08/21/18 10:15 Dose: 75 mg Enoxaparin Sodium (Lovenox) 30 mg SC DAILY [facility]; Protocol Last Admin: 08/21/18 10:16 Dose: 30 mg Ciprofloxacin (Cipro 400mg/200ml Dsw) 400 mg in 200 mls @ 200 mls/hr IVPB Q12 [facility]; Protocol Last Admin: 08/21/18 10:16 Dose: 200 mls/hr - Labs Labs: 08/21/18 06:10 08/21/18 06:10 PT 11.8 Seconds (9.8-13.1) 08/16/18 14:53 INR 1.0 08/16/18 14:53 APTT 30.9 Seconds (25.6-37.1) 08/16/18 14:53 - Constitutional Appears: Non-toxic, Chronically Ill - Head Exam Head Exam: ATRAUMATIC, NORMAL INSPECTION, NORMOCEPHALIC - Eye Exam Eye Exam: EOMI, Normal appearance, PERRL Pupil Exam: NORMAL ACCOMODATION, PERRL - ENT Exam ENT Exam: Mucous Membranes Moist, Normal Exam - Neck Exam Neck Exam: Full ROM, Normal Inspection. absent: Lymphadenopathy - Respiratory Exam Respiratory Exam: Clear to Ausculation Bilateral, NORMAL BREATHING PATTERN - Cardiovascular Exam Cardiovascular Exam: REGULAR RHYTHM, +S1, +S2. absent: Murmur - GI/Abdominal Exam GI & Abdominal Exam: Soft, Normal Bowel Sounds. absent: Tenderness - Rectal Exam Rectal Exam: Deferred - Exam Exam: NORMAL INSPECTION - Extremities Exam Extremities Exam: Full ROM, Normal Capillary Refill, Normal Inspection. absent: Joint Swelling, Pedal Edema - Back Exam Back Exam: NORMAL INSPECTION - Neurological Exam Neurological Exam: Alert, Awake, CN II-XII Intact, Normal Gait, Oriented x3 - Psychiatric Exam Psychiatric exam: Normal Affect, Normal Mood - Skin Skin Exam: Dry, Intact, Normal Color, Warm Assessment and Plan (1) Varicella-zoster infection Assessment & Plan: cont po rx as ordered Status: Acute (2) Shingles Status: Acute (3) Shingles outbreak Status: Acute (4) Diverticulitis Status: Acute - Assessment and Plan (Free Text) Assessment: IV and PO rx ordered
--- NOTE | 2018-08-21 14:43 | CP.PCM.PN ---
Subjective - Date & Time of Evaluation Date of Evaluation: 08/21/18 Time of Evaluation: 10:00 - Subjective Subjective: Left flank/abdominal rash /pain persists Rash is not oozing c/o fatigue otherwise pt is doing well Objective - Vital Signs/Intake and Output Vital Signs (last 24 hours): Temp Pulse Resp BP Pulse Ox 98.0 F 78 20 127/67 96 08/21/18 08:38 08/21/18 08:38 08/21/18 08:38 08/21/18 08:38 08/21/18 08:38 Intake and Output: 08/21/18 08/21/18 06:59 18:59 Intake Total 400 Output Total 400 Balance 0 - Medications Medications: Current Medications Acetaminophen (Tylenol 325mg Tab) 650 mg PO Q6 PRN PRN Reason: Pain, moderate (4-7) Last Admin: 08/20/18 23:09 Dose: 650 mg Acyclovir (Zovirax) 800 mg PO 5XD [facility]; Protocol Last Admin: 08/21/18 12:02 Dose: 800 mg Aspirin (Aspirin Chewable) 81 mg PO DAILY [facility] Last Admin: 08/21/18 10:16 Dose: 81 mg Clopidogrel Bisulfate (Plavix) 75 mg PO DAILY [facility] Last Admin: 08/21/18 10:15 Dose: 75 mg Enoxaparin Sodium (Lovenox) 30 mg SC DAILY [facility]; Protocol Last Admin: 08/21/18 10:16 Dose: 30 mg Ciprofloxacin (Cipro 400mg/200ml Dsw) 400 mg in 200 mls @ 200 mls/hr IVPB Q12 [facility]; Protocol Last Admin: 08/21/18 10:16 Dose: 200 mls/hr - Labs Labs: 08/21/18 06:10 08/21/18 06:10 PT 11.8 Seconds (9.8-13.1) 08/16/18 14:53 INR 1.0 08/16/18 14:53 APTT 30.9 Seconds (25.6-37.1) 08/16/18 14:53 Assessment and Plan (1) Diverticulitis Status: Acute (2) Essential (primary) hypertension Status: Acute (3) Generalized anxiety disorder Status: Acute (4) Shingles Status: Acute (5) Varicella-zoster infection Status: Acute
[2018-08-22] MEDS: Ciprofloxacin 400mg/200ml D5W 400 MG/200 ML BAG IVPB SCH (09:35)
[2018-08-22] MEDS: Enoxaparin 30 mg Syringe SC SCH (09:36)
--- NOTE | 2018-08-22 12:46 | CP.PCM.PN ---
Subjective - Date & Time of Evaluation Date of Evaluation: 08/22/18 Time of Evaluation: 10:00 - Subjective Subjective: herpes Zoster rash still present ++ pain no vesicles IV difficult to find will switch Cipro to PO & d/c IV Objective - Vital Signs/Intake and Output Vital Signs (last 24 hours): Temp Pulse Resp BP Pulse Ox 97.3 F L 69 20 129/73 97 08/22/18 08:28 08/22/18 08:28 08/22/18 08:28 08/22/18 08:28 08/22/18 08:28 Intake and Output: 08/22/18 08/22/18 06:59 18:59 Intake Total 300 Output Total 600 Balance -300 - Medications Medications: Current Medications Acetaminophen (Tylenol 325mg Tab) 650 mg PO Q6 PRN PRN Reason: Pain, moderate (4-7) Last Admin: 08/22/18 09:35 Dose: 650 mg Acyclovir (Zovirax) 800 mg PO 5XD [facility]; Protocol Last Admin: 08/22/18 09:37 Dose: 800 mg Aspirin (Aspirin Chewable) 81 mg PO DAILY [facility] Last Admin: 08/22/18 09:37 Dose: 81 mg Ciprofloxacin (Cipro) 500 mg PO Q12 [facility]; Protocol Clopidogrel Bisulfate (Plavix) 75 mg PO DAILY [facility] Last Admin: 08/22/18 09:37 Dose: 75 mg Enoxaparin Sodium (Lovenox) 30 mg SC DAILY [facility]; Protocol Last Admin: 08/22/18 09:36 Dose: 30 mg Gabapentin (Neurontin) 100 mg PO TID [facility] Last Admin: 08/22/18 12:23 Dose: 100 mg - Labs Labs: 08/21/18 06:10 08/21/18 06:10 PT 11.8 Seconds (9.8-13.1) 08/16/18 14:53 INR 1.0 08/16/18 14:53 APTT 30.9 Seconds (25.6-37.1) 08/16/18 14:53 Assessment and Plan (1) Diverticulitis Status: Acute (2) Essential (primary) hypertension Status: Acute (3) Generalized anxiety disorder Status: Acute (4) Shingles Status: Acute (5) Varicella-zoster infection Status: Acute
--- NOTE | 2018-08-22 14:13 | CP.PCM.PN ---
Subjective - Date & Time of Evaluation Date of Evaluation: 08/22/18 Time of Evaluation: 09:00 - Subjective Subjective: c/o severe painful rash which extends to spine posterirly in dermatomal distribution denies fever abd pain less Objective - Vital Signs/Intake and Output Vital Signs (last 24 hours): Temp Pulse Resp BP Pulse Ox 97.3 F L 69 20 129/73 97 08/22/18 08:28 08/22/18 08:28 08/22/18 08:28 08/22/18 08:28 08/22/18 08:28 Intake and Output: 08/22/18 08/22/18 06:59 18:59 Intake Total 300 Output Total 600 Balance -300 - Medications Medications: Current Medications Acetaminophen (Tylenol 325mg Tab) 650 mg PO Q6 PRN PRN Reason: Pain, moderate (4-7) Last Admin: 08/22/18 09:35 Dose: 650 mg Acyclovir (Zovirax) 800 mg PO 5XD [facility]; Protocol Last Admin: 08/22/18 09:37 Dose: 800 mg Aspirin (Aspirin Chewable) 81 mg PO DAILY [facility] Last Admin: 08/22/18 09:37 Dose: 81 mg Ciprofloxacin (Cipro) 500 mg PO Q12 [facility]; Protocol Clopidogrel Bisulfate (Plavix) 75 mg PO DAILY [facility] Last Admin: 08/22/18 09:37 Dose: 75 mg Enoxaparin Sodium (Lovenox) 30 mg SC DAILY [facility]; Protocol Last Admin: 08/22/18 09:36 Dose: 30 mg Gabapentin (Neurontin) 100 mg PO TID [facility] Last Admin: 08/22/18 12:23 Dose: 100 mg - Labs Labs: 08/21/18 06:10 08/21/18 06:10 PT 11.8 Seconds (9.8-13.1) 08/16/18 14:53 INR 1.0 08/16/18 14:53 APTT 30.9 Seconds (25.6-37.1) 08/16/18 14:53 - Constitutional Appears: Chronically Ill - Head Exam Head Exam: NORMOCEPHALIC - Eye Exam Eye Exam: absent: Scleral icterus - ENT Exam ENT Exam: Mucous Membranes Dry - Neck Exam Neck Exam: absent: Lymphadenopathy - Respiratory Exam Respiratory Exam: Decreased Breath Sounds - Cardiovascular Exam Cardiovascular Exam: REGULAR RHYTHM - GI/Abdominal Exam GI & Abdominal Exam: Distended, Soft - Rectal Exam Rectal Exam: Deferred - Exam Exam: NORMAL INSPECTION - Extremities Exam Extremities Exam: absent: Pedal Edema - Back Exam Back Exam: absent: CVA tenderness (L), CVA tenderness (R) - Neurological Exam Neurological Exam: Alert, Awake, Oriented x3 - Psychiatric Exam Psychiatric exam: Depressed - Skin Skin Exam: Erythema, Rash Assessment and Plan (1) Varicella-zoster infection Status: Acute (2) Shingles Status: Acute (3) Shingles outbreak Status: Acute (4) Diverticulitis Status: Acute - Assessment and Plan (Free Text) Assessment: consider pain management cont acyclovir PO 5 x daily
[2018-08-23 07:32] LABS: HEMOGLOBIN 11.3 g/dL (12.0-16.0); MEAN CELL VOLUME 102.4 fl (81.0-99.0); MEAN CORPUSCULAR HEMOGLOBIN 33.6 pg (27.0-31.0); MEAN CORPUSCULAR HGB CONC 32.8 g/dL (33.0-37.0); RBC 3.38 Mil/uL (3.80-5.20); RED CELL DISTRIBUTION WIDTH 15.8 % (11.5-14.5); WHITE BLOOD COUNT 3.7 K/uL (4.8-10.8)
[2018-08-23 07:54] LABS: ALB/GLOB RATIO 1.4 (1.0-2.1); ALBUMIN 3.7 g/dL (3.5-5.0); CALCIUM 9.4 mg/dL (8.4-10.2)
[2018-08-23] MEDS: Enoxaparin 30 mg Syringe SC SCH (09:27)
--- NOTE | 2018-08-23 10:58 | CP.PCM.PN ---
Subjective - Date & Time of Evaluation Date of Evaluation: 08/23/18 Time of Evaluation: 10:00 - Subjective Subjective: Pain at site of shingles rash persists c/o difficulty swallowing at times/not always sometimes food gets "stuck" in esophagus and has to spit it up Will get Swallow Eval Objective - Vital Signs/Intake and Output Vital Signs (last 24 hours): Temp Pulse Resp BP Pulse Ox 97.7 F 67 18 128/76 97 08/23/18 07:56 08/23/18 07:56 08/23/18 07:56 08/23/18 07:56 08/23/18 07:56 Intake and Output: 08/23/18 08/23/18 06:59 18:59 Intake Total 200 Output Total 300 Balance -100 - Medications Medications: Current Medications Acetaminophen (Tylenol 325mg Tab) 650 mg PO Q6 PRN PRN Reason: Pain, moderate (4-7) Last Admin: 08/22/18 23:36 Dose: 650 mg Acyclovir (Zovirax) 800 mg PO 5XD [facility]; Protocol Last Admin: 08/23/18 09:23 Dose: 800 mg Aspirin (Aspirin Chewable) 81 mg PO DAILY [facility] Last Admin: 08/23/18 09:24 Dose: 81 mg Ciprofloxacin (Cipro) 500 mg PO Q12 [facility]; Protocol Last Admin: 08/23/18 09:23 Dose: 500 mg Clopidogrel Bisulfate (Plavix) 75 mg PO DAILY [facility] Last Admin: 08/23/18 09:27 Dose: 75 mg Enoxaparin Sodium (Lovenox) 30 mg SC DAILY [facility]; Protocol Last Admin: 08/23/18 09:27 Dose: 30 mg Gabapentin (Neurontin) 100 mg PO TID [facility] Last Admin: 08/23/18 09:24 Dose: 100 mg - Labs Labs: 08/23/18 07:10 08/23/18 07:10 PT 11.8 Seconds (9.8-13.1) 08/16/18 14:53 INR 1.0 08/16/18 14:53 APTT 30.9 Seconds (25.6-37.1) 08/16/18 14:53 Assessment and Plan (1) Diverticulitis Status: Acute (2) Essential (primary) hypertension Status: Acute (3) Generalized anxiety disorder Status: Acute (4) Shingles Status: Acute (5) Varicella-zoster infection Status: Acute
[2018-08-24 08:24] VITALS: BP 115/69; PULSE 68; RESP 20; TEMP 97.4
[2018-08-24] MEDS: Enoxaparin 30 mg Syringe SC SCH (10:47)
--- NOTE | 2018-08-24 12:12 | CP.PCM.PN ---
Subjective - Date & Time of Evaluation Date of Evaluation: 08/24/18 Time of Evaluation: 07:00 - Subjective Subjective: rash improving for possible RONEL Objective - Vital Signs/Intake and Output Vital Signs (last 24 hours): Temp Pulse Resp BP Pulse Ox 97.4 F L 68 20 115/69 96 08/24/18 08:22 08/24/18 08:22 08/24/18 08:22 08/24/18 08:22 08/24/18 08:22 Intake and Output: 08/24/18 08/24/18 06:59 18:59 Output Total 650 Balance -650 - Medications Medications: Current Medications Acetaminophen (Tylenol 325mg Tab) 650 mg PO Q6 PRN PRN Reason: Pain, moderate (4-7) Last Admin: 08/22/18 23:36 Dose: 650 mg Acyclovir (Zovirax) 800 mg PO 5XD [facility]; Protocol Last Admin: 08/24/18 08:39 Dose: 800 mg Aspirin (Aspirin Chewable) 81 mg PO DAILY [facility] Last Admin: 08/24/18 08:39 Dose: 81 mg Ciprofloxacin (Cipro) 500 mg PO Q12 [facility]; Protocol Last Admin: 08/24/18 08:38 Dose: 500 mg Clopidogrel Bisulfate (Plavix) 75 mg PO DAILY [facility] Last Admin: 08/24/18 08:38 Dose: 75 mg Enoxaparin Sodium (Lovenox) 30 mg SC DAILY [facility]; Protocol Last Admin: 08/24/18 10:47 Dose: Not Given Gabapentin (Neurontin) 100 mg PO TID [facility] Last Admin: 08/24/18 08:39 Dose: 100 mg - Labs Labs: 08/23/18 07:10 08/23/18 07:10 PT 11.8 Seconds (9.8-13.1) 08/16/18 14:53 INR 1.0 08/16/18 14:53 APTT 30.9 Seconds (25.6-37.1) 08/16/18 14:53 - Constitutional Appears: Non-toxic, Chronically Ill - Head Exam Head Exam: NORMOCEPHALIC - Eye Exam Eye Exam: absent: Scleral icterus - ENT Exam ENT Exam: Mucous Membranes Dry - Neck Exam Neck Exam: absent: Lymphadenopathy - Respiratory Exam Respiratory Exam: Decreased Breath Sounds - Cardiovascular Exam Cardiovascular Exam: REGULAR RHYTHM - GI/Abdominal Exam GI & Abdominal Exam: Distended - Rectal Exam Rectal Exam: Deferred - Exam Exam: NORMAL INSPECTION Assessment and Plan (1) Varicella-zoster infection Status: Acute (2) Shingles Status: Acute (3) Shingles outbreak Status: Acute (4) Diverticulitis Status: Acute - Assessment and Plan (Free Text) Assessment: cont acycvir 5 x daily
[2018-08-24 15:29] VITALS: O2SAT 98
--- NOTE | 2018-08-24 15:41 | CP.PCM.PN ---
Subjective - Date & Time of Evaluation Date of Evaluation: 08/24/18 Time of Evaluation: 10:00 - Subjective Subjective: Feels well She is cleared by Dr Lomeli to be out of isolation Will transfer to TCU is there Objective - Vital Signs/Intake and Output Vital Signs (last 24 hours): Temp Pulse Resp BP Pulse Ox 97.4 F L 68 20 115/69 98 08/24/18 08:22 08/24/18 15:17 08/24/18 08:22 08/24/18 08:22 08/24/18 15:17 Intake and Output: 08/24/18 08/24/18 06:59 18:59 Output Total 650 Balance -650 - Medications Medications: Current Medications Acetaminophen (Tylenol 325mg Tab) 650 mg PO Q6 PRN PRN Reason: Pain, moderate (4-7) Last Admin: 08/22/18 23:36 Dose: 650 mg Acyclovir (Zovirax) 800 mg PO 5XD [facility]; Protocol Last Admin: 08/24/18 12:41 Dose: 800 mg Aspirin (Aspirin Chewable) 81 mg PO DAILY [facility] Last Admin: 08/24/18 08:39 Dose: 81 mg Ciprofloxacin (Cipro) 500 mg PO Q12 [facility]; Protocol Last Admin: 08/24/18 08:38 Dose: 500 mg Clopidogrel Bisulfate (Plavix) 75 mg PO DAILY [facility] Last Admin: 08/24/18 08:38 Dose: 75 mg Enoxaparin Sodium (Lovenox) 30 mg SC DAILY [facility]; Protocol Last Admin: 08/24/18 10:47 Dose: Not Given Gabapentin (Neurontin) 100 mg PO TID [facility] Last Admin: 08/24/18 12:42 Dose: 100 mg - Labs Labs: 08/23/18 07:10 08/23/18 07:10 PT 11.8 Seconds (9.8-13.1) 08/16/18 14:53 INR 1.0 08/16/18 14:53 APTT 30.9 Seconds (25.6-37.1) 08/16/18 14:53 Assessment and Plan (1) Diverticulitis Status: Acute (2) Essential (primary) hypertension Status: Acute (3) Generalized anxiety disorder Status: Acute (4) Shingles Status: Acute (5) Varicella-zoster infection Status: Acute
--- NOTE | 2018-08-25 10:32 | CP.PCM.DIS ---
Provider - Provider Date of Admission: 08/16/18 21:06 Attending physician: Beto Jamison MD Consults: 08/17/18 02:23 Case Management Referral Routine Comment: Physician Instructions: Reason For Exam: Reason for Referral: Discharge Planning Nursing Referral for Wound Care Routine Comment: Physician Instructions: Reason For Exam: sacral decubiti 08/17/18 07:05 Gastroenterology Consult Routine Comment: colitis Consulting Provider: Lanre Montague Consulting Physician: Lanre Montague Reason for Consult: abdominal pain,colitis 08/19/18 12:55 Infectious Disease Consult Routine Comment: [place] and Rx Consulting Provider: Dwayne Lomeli Consulting Physician: Dwayne Lomeli Reason for Consult: ?? Zoster rash Time Spent in preparation of Discharge (in minutes): 33 Diagnosis - Discharge Diagnosis (1) Varicella-zoster infection Status: Acute (2) Diverticulitis Status: Acute (3) Essential (primary) hypertension Status: Acute (4) Generalized anxiety disorder Status: Acute (5) Shingles Status: Acute Hospital Course - Lab Results Lab Results: Micro Results 08/16/18 21:46 Blood-Venous Blood Culture - Final NO GROWTH AFTER 5 DAYS 08/16/18 21:46 Blood-Venous Gram Stain - Final TEST NOT PERFORMED 08/17/18 09:20 Urine,[place] Urine Culture - Final Gram Negative Nathen Most Recent Lab Values WBC 3.7 K/uL (4.8-10.8) L 08/23/18 07:10 RBC 3.38 Mil/uL (3.80-5.20) L 08/23/18 07:10 Hgb 11.3 g/dL (12.0-16.0) L 08/23/18 07:10 Hct 34.6 % (34.0-47.0) 08/23/18 07:10 MCV 102.4 fl (81.0-99.0) H 08/23/18 07:10 MCH 33.6 pg (27.0-31.0) H 08/23/18 07:10 MCHC 32.8 g/dL (33.0-37.0) L 08/23/18 07:10 RDW 15.8 % (11.5-14.5) H 08/23/18 07:10 Plt Count 52 K/uL (130-400) L 08/23/18 07:10 MPV 10.2 fl (7.2-11.7) 08/16/18 14:53 Neut % (Auto) 54.1 % (50.0-75.0) 08/16/18 14:53 Lymph % (Auto) 35.5 % (20.0-40.0) 08/16/18 14:53 [place] % (Auto) 8.3 % (0.0-10.0) 08/16/18 14:53 Eos % (Auto) 1.3 % (0.0-4.0) 08/16/18 14:53 Baso % (Auto) 0.8 % (0.0-2.0) 08/16/18 14:53 Neut # (Auto) 4.0 K/uL (1.8-7.0) 08/16/18 14:53 Lymph # (Auto) 2.6 K/uL (1.0-4.3) 08/16/18 14:53 [place] # (Auto) 0.6 K/uL (0.0-0.8) 08/16/18 14:53 Eos # (Auto) 0.1 K/uL (0.0-0.7) 08/16/18 14:53 Baso # (Auto) 0.1 K/uL (0.0-0.2) 08/16/18 14:53 PT 11.8 Seconds (9.8-13.1) 08/16/18 14:53 INR 1.0 08/16/18 14:53 APTT 30.9 Seconds (25.6-37.1) 08/16/18 14:53 Sodium 134 mmol/l (132-148) 08/23/18 07:10 Potassium 3.7 MMOL/L (3.6-5.0) 08/23/18 07:10 Chloride 105 mmol/L (98-107) 08/23/18 07:10 Carbon Dioxide 17 mmol/L (22-30) L 08/23/18 07:10 Anion Gap 16 (10-20) 08/23/18 07:10 BUN 34 mg/dl (7-17) H 08/23/18 07:10 Creatinine 1.3 mg/dl (0.7-1.2) H 08/23/18 07:10 Est GFR ( Amer) 47 08/23/18 07:10 Est GFR (Non-Af Amer) 39 08/23/18 07:10 Random Glucose 93 mg/dL (65-105) 08/23/18 07:10 Calcium 9.4 mg/dL (8.4-10.2) 08/23/18 07:10 Total Bilirubin 0.5 mg/dl (0.2-1.3) 08/23/18 07:10 AST 24 U/L (14-36) 08/23/18 07:10 ALT 30 U/L (9-52) 08/23/18 07:10 Alkaline Phosphatase 70 U/L (38-126) 08/23/18 07:10 Total Protein 6.4 G/DL (6.3-8.2) 08/23/18 07:10 Albumin 3.7 g/dL (3.5-5.0) 08/23/18 07:10 Globulin 2.7 gm/dL (2.2-3.9) 08/23/18 07:10 Albumin/Globulin Ratio 1.4 (1.0-2.1) 08/23/18 07:10 Urine Color Yellow (YELLOW) 08/17/18 00:30 Urine Clarity Clear (Clear) 08/17/18 00:30 Urine pH 6.0 (5.0-8.0) 08/17/18 00:30 Ur Specific [place] 1.013 (1.003-1.030) 08/17/18 00:30 Urine Protein Negative mg/dL (NEGATIVE) 08/17/18 00:30 Urine Glucose (UA) Neg mg/dL (NEGATIVE) 08/17/18 00:30 Urine Ketones Negative mg/dL (NEGATIVE) 08/17/18 00:30 Urine Blood Negative (NEGATIVE) 08/17/18 00:30 Urine Nitrate Negative (NEGATIVE) 08/17/18 00:30 Urine Bilirubin Negative (NEGATIVE) 08/17/18 00:30 Urine Urobilinogen 0.2-1.0 mg/dL (0.2-1.0) 08/17/18 00:30 Ur Leukocyte Esterase Small [place]/uL (Negative) 08/17/18 00:30 Urine RBC (Auto) 1 /hpf (0-3) 08/17/18 00:30 Urine Microscopic WBC 9 /hpf (0-5) H 08/17/18 00:30 Ur Squamous Epith Cells 1 /hpf (0-5) 08/16/18 17:00 Urine Bacteria Rare (<OCC) 08/17/18 00:30 Hyaline Casts 0-2 /hpf (0-2) 08/16/18 17:00 - Hospital Course Hospital Course: 87 y/o w/f Traeted for Herpes Zoster Left flank / abdominal area And UTI - Date & Time of H&P Date of H&P: 08/25/18 Time of H&P: 10:31 Discharge Exam - Head Exam Head Exam: NORMOCEPHALIC Discharge Plan - Follow Up Plan Condition: STABLE Disposition: REHAB FACILITY/REHAB UNIT Instructions: Diverticulitis (DC), Shingles (DC), Urinary Tract Infection in Women (DC) Additional Instructions: follow up with primary MD 1 week Referrals: Beto Jamison MD [Staff Provider] - Lanre Montague MD, PhD [Staff Provider] - Dwayne Lomeli MD [Staff Provider] -
== END 2018-08-24 15:45 | DRG 690 ==
LOC: H.ER 13:43 → H.ERHOLD 21:06 → H.MEDSURG1 08-17 01:00
PROVIDERS: ADMIT Internal Medicine Cardiovascular Disease; ATTEND Internal Medicine Cardiovascular Disease
DX: N39.0 Urinary tract infection, site not specified (principal); K57.32 Diverticulitis of large intestine without perforation or abscess without bleeding; I50.22 Chronic systolic (congestive) heart failure; I13.0 Hypertensive heart and chronic kidney disease with heart failure and stage 1 through stage 4 chronic kidney disease, or unspecified chronic kidney disease; N18.4 Chronic kidney disease, stage 4 (severe); B01.9 Varicella without complication; J44.9 Chronic obstructive pulmonary disease, unspecified; B02.9 Zoster without complications; E03.9 Hypothyroidism, unspecified; E78.00 Pure hypercholesterolemia, unspecified; F41.1 Generalized anxiety disorder; I25.10 Atherosclerotic heart disease of native coronary artery without angina pectoris; J32.0 Chronic maxillary sinusitis; N31.9 Neuromuscular dysfunction of bladder, unspecified; R13.10 Dysphagia, unspecified; Z79.82 Long term (current) use of aspirin; Z87.440 Personal history of urinary (tract) infections; Z90.49 Acquired absence of other specified parts of digestive tract; Z90.710 Acquired absence of both cervix and uterus; Z95.5 Presence of coronary angioplasty implant and graft; F32.9 Major depressive disorder, single episode, unspecified; F41.9 Anxiety disorder, unspecified; H26.9 Unspecified cataract; K29.70 Gastritis, unspecified, without bleeding; K44.9 Diaphragmatic hernia without obstruction or gangrene; M10.9 Gout, unspecified; M19.90 Unspecified osteoarthritis, unspecified site; R31.9 Hematuria, unspecified; Z79.899 Other long term (current) drug therapy

== ENCOUNTER 2018-08-24 14:50 | Inpatient (IN) | payer OTHER, MEDICARE ==
[2018-08-24 16:09] VITALS: BMI 28.8
[2018-08-25 07:46] LABS: HEMOGLOBIN 10.3 g/dL (12.0-16.0); MEAN CELL VOLUME 101.9 fl (81.0-99.0); MEAN CORPUSCULAR HEMOGLOBIN 33.5 pg (27.0-31.0); MEAN CORPUSCULAR HGB CONC 32.9 g/dL (33.0-37.0); RBC 3.07 Mil/uL (3.80-5.20); RED CELL DISTRIBUTION WIDTH 15.8 % (11.5-14.5); WHITE BLOOD COUNT 4.2 K/uL (4.8-10.8)
[2018-08-25 08:11] LABS: CALCIUM 9.1 mg/dL (8.4-10.2)
--- NOTE | 2018-08-25 09:18 | CP.PCM.HP ---
History of Present Illness - History of Present Illness History of Present Illness: 87 y/o w/f admitted with abdominal pain found to have UTI & Herpes Zoster of laft flank and abdominal area Txed w/ cipro and Acyclovir Pt has had chronic UTI over years has indwelling catheter at home 2* Neurogenic bladder EKG: NSR PMH: Coronary Artery disease s/p cardiac catheterization 02/21/2011 Chronic urinary tract infection with hematuria Neurogenic Bladder indwelling [place] Catheter Gout Chronic congestive heart failure Left sided Systolic Anxiety Hypertension Chronic maxillary sinusitis CRF stage 3 - 4 Cellulitis of RLE Present on Admission - Present on Admission Any Indicators Present on Admission: Yes Urinary Catheter: Yes Past Patient History - Infectious Disease Hx of Infectious Diseases: None - Past Medical History & Family History Past Medical History?: Yes - Past Social History Smoking Status: Never Smoked - CARDIAC Hx Congestive Heart Failure: Yes Hx Hypercholesterolemia: Yes Hx Hypertension: Yes - PULMONARY Hx Chronic Obstructive Pulmonary Disease (COPD): Yes - NEUROLOGICAL HX Cerebrovascular Accident: No - HEENT Hx Cataracts: Yes - RENAL Hx Chronic Kidney Disease: No Hx Renal Failure: Yes - ENDOCRINE/METABOLIC Hx Hypothyroidism: Yes - HEMATOLOGICAL/ONCOLOGICAL Hx Human Immunodeficiency Virus (HIV): No - INTEGUMENTARY Hx Dermatological Problems: Yes Hx Cellulitis: Yes (R/L LE) - MUSCULOSKELETAL/RHEUMATOLOGICAL Hx Arthritis: Yes Hx Falls: No Hx Rheumatoid Arthritis: No - GASTROINTESTINAL Hx Diverticulitis: Yes Hx Gastritis: Yes - GENITOURINARY/GYNECOLOGICAL Hx Genitourinary Disorders: Yes Hx Hematuria: Yes (history) Hx Urinary Tract Infection: Yes Other/Comment: Calvert catheter - PSYCHIATRIC Hx Anxiety: Yes Hx Depression: Yes Hx Substance Use: No - SURGICAL HISTORY Hx Cholecystectomy: Yes Hx Coronary Stent: Yes (x 2) - ANESTHESIA Hx Anesthesia: Yes Hx Anesthesia Reactions: No Hx Malignant Hyperthermia: No Meds Allergies/Adverse Reactions: Allergies Allergy/AdvReac Type Severity Reaction Status Date / Time metronidazole [From Flagyl] Allergy RASH Verified 08/24/18 15:59 nitrofurantoin Allergy RASH Verified 08/24/18 15:59 [From Macrobid] nitrofurantoin Allergy RASH Verified 08/24/18 15:59 macrocrystalline [From Macrobid] Results - Vital Signs Recent Vital Signs: Last Vital Signs Temp 98.8 F 08/24/18 21:13 Pulse 71 08/24/18 21:13 Resp 20 08/24/18 21:13 BP 110/67 08/24/18 21:13 Pulse Ox 98 08/24/18 21:13 - Labs Result Diagrams: 08/25/18 06:00 08/25/18 06:00 Labs: Laboratory Results - last 24 hr 08/25/18 08/25/18 06:00 06:00 WBC 4.2 L RBC 3.07 L Hgb 10.3 L Hct 31.2 L MCV 101.9 H MCH 33.5 H MCHC 32.9 L RDW 15.8 H Plt Count 82 L D Sodium 134 Potassium 4.2 Chloride 105 Carbon Dioxide 18 L Anion Gap 15 BUN 28 H Creatinine 1.3 H Est GFR ( Amer) 47 Est GFR (Non-Af Amer) 39 Random Glucose 81 Calcium 9.1 Assessment & Plan (1) Varicella-zoster infection Status: Acute (2) Essential (primary) hypertension Status: Acute (3) Generalized anxiety disorder Status: Acute
--- NOTE | 2018-08-26 10:31 | CP.PCM.PN ---
Subjective - Date & Time of Evaluation Date of Evaluation: 08/26/18 Time of Evaluation: 10:00 - Subjective Subjective: Doing well rash is dry + Pain Objective - Vital Signs/Intake and Output Vital Signs (last 24 hours): Temp Pulse Resp BP Pulse Ox 97.7 F 75 20 113/70 99 08/26/18 08:19 08/26/18 08:19 08/26/18 08:19 08/26/18 08:19 08/26/18 08:19 - Medications Medications: Current Medications Acetaminophen (Tylenol 325mg Tab) 650 mg PO Q6 PRN PRN Reason: Pain, moderate (4-7) Last Admin: 08/26/18 00:30 Dose: 650 mg Acyclovir (Zovirax) 800 mg PO 5XD [facility]; Protocol Last Admin: 08/26/18 09:31 Dose: 800 mg Aspirin (Aspirin Chewable) 81 mg PO DAILY [facility] Last Admin: 08/26/18 09:30 Dose: 81 mg Ciprofloxacin (Cipro) 500 mg PO Q12 [facility]; Protocol Last Admin: 08/26/18 09:30 Dose: 500 mg Clopidogrel Bisulfate (Plavix) 75 mg PO DAILY [facility] Last Admin: 08/26/18 09:31 Dose: 75 mg Gabapentin (Neurontin) 100 mg PO TID [facility] Last Admin: 08/26/18 09:30 Dose: 100 mg - Labs Labs: 08/25/18 06:00 08/25/18 06:00 Assessment and Plan (1) Varicella-zoster infection Status: Acute (2) Essential (primary) hypertension Status: Acute (3) Generalized anxiety disorder Status: Acute
--- NOTE | 2018-08-26 11:56 | CP.PCM.CON ---
History of Present Illness - History of Present Illness History of Present Illness: 87 year old female, with a past medical history of cholecystectomy, ventral hernia repair, and hiatal hernia repair, presented to the ED complaining of constant abdominal pain for 3 days. She was found to have diverticulitis by CT and later developed rash on left side of upper abdomen due to Shingles TReated with IV antibiotics as well as Acyclovir Now in TCU for cont of care - Medical History PMH: Anxiety, Arthritis, CAD, CHF, COPD, Depression, Diverticulitis, Gastritis, Hiatal Hernia, HTN, Hypercholesterolemia, Hypothyroidism Denies: HIV, Chronic Kidney Disease, Rheumatoid Arthritis - Surgical History Surgical History: Cholecystectomy, Coronary Stent (x 2), Hernia Repair (x2) Other surgeries: Hysterectomy Review of Systems - Review of Systems All systems: reviewed and no additional remarkable complaints except - Constitutional Constitutional: As Per HPI - EENT Eyes: absent: As Per HPI, Blind Spots, Blurred Vision, Change in Vision, Decreased Night Vision, Diplopia, Discharge, Dry Eye, Exophthalmos, Floaters, Irritation, Itchy Eyes, Loss of Peripheral Vision, Pain, Photophobia, Requires Corrective Lenses, Sees Flashes, Spots in Vision, Tunnel Vision, Other Visual Disturbances, Loss of Vision, Other Ears: absent: As Per HPI, Decreased Hearing, Ear Discharge, Ear Pain, Tinnitus, Abnormal Hearing, Disequilibrium, Dizziness, Other Nose/Mouth/Throat: absent: As Per HPI, Epistaxis, Nasal Congestion, Nasal D ischarge, Nasal Obstruction, Nasal Trauma, Nose Pain, Post Nasal Drip, Sinus Pain, Sinus Pressure, Bleeding Gums, Change in Voice, Dental Pain, Dry Mouth, Dysphagia, Halitosis, Hoarsness, Lip Swelling, Mouth Lesions, Mouth Pain, Odynophagia, Sore Throat, Throat Swelling, Tongue Swelling, Facial Pain, Neck Pain, Neck Mass, Other - Breasts Breasts: absent: As Per HPI, Change in Shape, Mass, Pain, Nipple Discharge, Nipple Inversion, Skin Changes, Swelling, Other - Cardiovascular Cardiovascular: As Per HPI - Respiratory Respiratory: absent: As Per HPI, Cough, Dyspnea, Hemoptysis, Dyspnea on Exertion, Wheezing, Snoring, Stridor, Pain on Inspiration, Chest Congestion, Excessive Mucous Production, Change in Mucous Color, Pain with Coughing, Other - Gastrointestinal Gastrointestinal: As Per HPI, Abdominal Pain - Genitourinary Genitourinary: As Per HPI - Reproductive: Female Reproductive:Female: absent: As Per HPI, Amenorrhea, Amenorrhea/ Control, Currently Menstual, Cycle <21 Days, Cycle >35 Days, Cycle Variable, Menses 1-7 Days, Menses >/= 8 Days, Menses Variable, Cycle > 4 Weeks Between, No Menses for 6 Months, Heavy Menses, Light Menses, Normal Menses, Spotting Between Cycles, S/P Hysterectomy, Menopausal, Post Menopausal, Premenarche, Abnormal Vaginal Bleeding, Dysmenorrhea, Dyspareunia, Genital Lesions, Genital Pruritis, Pelvic Pain, Prolapse Symptoms, Sexual Dysfunction, Vaginal Discharge, Vaginal Dryness, Vaginal Odor, Vaginal Pruritis, Other - Menstruation Menstruation: absent: As Per HPI, Amenorrhea, Amenorrhea/ Control, Currently Menstual, Cycle <21 Days, Cycle >35 Days, Cycle Variable, Menses 1-7 Days, Menses >/= 8 Days, Menses Variable, Cycle > 4 Weeks Between, No Menses for 6 Months, Heavy Menses, Light Menses, Normal Menses, Spotting Between Cycles, S/P Hysterectomy, Menopausal, Post Menopausal, Premenarche, Abnormal Vaginal Bleeding, Dysmenorrhea, Other - Musculoskeletal Musculoskeletal: absent: As Per HPI, Abnormal Gait, Arthralgias, Atrophy, Back Pain, Deformity, Joint Swelling, Limited Range of Motion, Loss of Height, Muscle Cramps, Muscle Weakness, Myalgias, Neck Pain, Numbness, Radiating Pain into Limb, Stiffness, Tingling, Other - Integumentary Integumentary: As Per HPI, Rash, Skin Pain - Neurological Neurological: absent: As Per HPI, Abnormal Gait, Abnormal Hearing, Abnormal Movements, Abnormal Speech, Behavioral Changes, Burning Sensations, Confusion, Convulsions, Disequilibrium, Dizziness, Numbness, Focal Weakness, Frequent Falls, Headaches, Lack of Coordination, Loss of Vision, Memory Loss, Paresthesias, Radicular Pain, Restless Legs, Sensory Deficit, Syncope, Tingling, Tremor, Vertigo, Weakness, Other Visual Disturbances, Other - Psychiatric Psychiatric: absent: As Per HPI, Abnormal Sleep Pattern, Anhedonia, Anxiety, Auditory Hallucinations, Behavioral Changes, Change in Appetite, Change in L ibido, Confusion, Depression, Difficulty Concentrating, Hallucinations, Homicidal Ideation, Hopelessness, Irritability, Memory Loss, Mood Swings, Panic Attacks, Paranoia, Suicidal Ideation, Visual Hallucinations, Tactile Hallucinations, Other - Endocrine Endocrine: absent: As Per HPI, Change in Body Appearance, Change in Libido, Cold Intolorance, Deepening of Voice, Excessive Sweating, Fatigue, Flushing, Heat Intolorance, Increase in Ring/Shoe/Hat Size, Palpitations, Polydipsia, Polyphagia, Polyuria, Other - Hematologic/Lymphatic Hematologic: absent: As Per HPI, Easy Bleeding, Easy Bruising, Lymphadenopathy, Other Past Patient History - Infectious Disease Hx of Infectious Diseases: None - Past Medical History & Family History Past Medical History?: Yes - Past Social History Smoking Status: Never Smoked - CARDIAC Hx Cardiac Disorders: Yes (CAD, PTCA) Hx Congestive Heart Failure: Yes Hx Hypercholesterolemia: Yes Hx Hypertension: Yes - PULMONARY Hx Chronic Obstructive Pulmonary Disease (COPD): Yes - NEUROLOGICAL HX Cerebrovascular Accident: No - HEENT Hx Cataracts: Yes - RENAL Hx Chronic Kidney Disease: No Hx Renal Failure: Yes - ENDOCRINE/METABOLIC Hx Diabetes Mellitus Type 2: Yes Hx Hypothyroidism: Yes - HEMATOLOGICAL/ONCOLOGICAL Hx Human Immunodeficiency Virus (HIV): No - INTEGUMENTARY Hx Dermatological Problems: Yes Hx Cellulitis: Yes (R/L LE) - MUSCULOSKELETAL/RHEUMATOLOGICAL Hx Arthritis: Yes - GASTROINTESTINAL Hx Diverticulitis: Yes Hx Gastritis: Yes - GENITOURINARY/GYNECOLOGICAL Hx Genitourinary Disorders: Yes Hx Hematuria: Yes (history) Hx Urinary Tract Infection: Yes Other/Comment: Calvert catheter - PSYCHIATRIC Hx Anxiety: Yes Hx Depression: Yes Hx Substance Use: No - SURGICAL HISTORY Hx Cholecystectomy: Yes Hx Coronary Stent: Yes (x 2) - ANESTHESIA Hx Anesthesia: Yes Hx Anesthesia Reactions: No Hx Malignant Hyperthermia: No Meds Allergies/Adverse Reactions: Allergies Allergy/AdvReac Type Severity Reaction Status Date / Time metronidazole [From Flagyl] Allergy RASH Verified 08/24/18 15:59 nitrofurantoin Allergy RASH Verified 08/24/18 15:59 [From Macrobid] nitrofurantoin Allergy RASH Verified 08/24/18 15:59 macrocrystalline [From Macrobid] - Medications Medications: Current Medications Acetaminophen (Tylenol 325mg Tab) 650 mg PO Q6 PRN PRN Reason: Pain, moderate (4-7) Last Admin: 08/26/18 00:30 Dose: 650 mg Acyclovir (Zovirax) 800 mg PO 5XD [facility]; Protocol Last Admin: 08/26/18 09:31 Dose: 800 mg Aspirin (Aspirin Chewable) 81 mg PO DAILY [facility] Last Admin: 08/26/18 09:30 Dose: 81 mg Ciprofloxacin (Cipro) 500 mg PO Q12 [facility]; Protocol Last Admin: 08/26/18 09:30 Dose: 500 mg Clopidogrel Bisulfate (Plavix) 75 mg PO DAILY [facility] Last Admin: 08/26/18 09:31 Dose: 75 mg Gabapentin (Neurontin) 100 mg PO TID [facility] Last Admin: 08/26/18 09:30 Dose: 100 mg Physical Exam - Constitutional Appears: Non-toxic - Head Exam Head Exam: NORMOCEPHALIC - Eye Exam Eye Exam: absent: Scleral icterus - ENT Exam ENT Exam: Mucous Membranes Dry - Neck Exam Neck exam: Negative for: Lymphadenopathy - Respiratory Exam Respiratory Exam: Decreased Breath Sounds, Clear to Auscultation Bilateral - Cardiovascular Exam Cardiovascular Exam: REGULAR RHYTHM - GI/Abdominal Exam GI & Abdominal Exam: Diminished Bowel Sounds, Soft. absent: Tenderness - Rectal Exam Rectal Exam: Deferred - Exam Exam: NORMAL INSPECTION - Extremities Exam Extremities exam: Negative for: pedal edema - Back Exam Back exam: absent: CVA tenderness (L), CVA tenderness (R), paraspinal tenderness - Neurological Exam Neurological exam: Alert, CN II-XII Intact, Oriented x3, Reflexes Normal - Psychiatric Exam Psychiatric exam: Normal Mood - Skin Skin Exam: Dry Additional comments: rash drying less inflamed no new vewsicles Results - Vital Signs Recent Vital Signs: Last Vital Signs Temp 97.7 F 08/26/18 08:19 Pulse 75 08/26/18 08:19 Resp 20 08/26/18 08:19 BP 113/70 08/26/18 08:19 Pulse Ox 99 08/26/18 08:19 - Labs Result Diagrams: 08/25/18 06:00 08/25/18 06:00 Assessment & Plan (1) Colon, diverticulosis Status: Acute (2) Diverticulitis Status: Acute (3) Shingles Status: Acute (4) Shingles outbreak Status: Acute (5) Varicella-zoster infection Status: Acute (6) Chronic renal failure Status: Chronic - Assessment and Plan (Free Text) Assessment: cont rx as ordered will follow with you ok to d/c isolation
--- NOTE | 2018-08-29 12:28 | CP.PCM.PN ---
Subjective - Date & Time of Evaluation Date of Evaluation: 08/29/18 Time of Evaluation: 10:00 - Subjective Subjective: pt feels well claims she is NOT anxious to go home since she will be returning to her same routine of 24 hr care of her suggested that she might consider [facility] she also would benefit from more PT there are things she cannot do at home because her legs are too weak Objective - Vital Signs/Intake and Output Vital Signs (last 24 hours): Temp Pulse Resp BP Pulse Ox 98.2 F 69 20 116/66 97 08/29/18 07:49 08/29/18 07:49 08/29/18 07:49 08/29/18 07:49 08/29/18 07:49 - Medications Medications: Current Medications Acetaminophen (Tylenol 325mg Tab) 650 mg PO Q6 PRN PRN Reason: Pain, moderate (4-7) Last Admin: 08/27/18 23:57 Dose: 650 mg Acyclovir (Zovirax) 800 mg PO 5XD [facility]; Protocol Last Admin: 08/29/18 09:05 Dose: 800 mg Aspirin (Aspirin Chewable) 81 mg PO DAILY [facility] Last Admin: 08/29/18 09:05 Dose: 81 mg Ciprofloxacin (Cipro) 500 mg PO Q12 [facility]; Protocol Last Admin: 08/29/18 09:05 Dose: 500 mg Clopidogrel Bisulfate (Plavix) 75 mg PO DAILY [facility] Last Admin: 08/29/18 09:06 Dose: 75 mg Docusate Sodium (Colace) 100 mg PO TID [facility] Last Admin: 08/29/18 09:06 Dose: 100 mg Gabapentin (Neurontin) 100 mg PO TID [facility] Last Admin: 08/29/18 09:06 Dose: 100 mg Lactulose (Enulose) 20 gm PO DAILY PRN PRN Reason: Constipation - Labs Labs: 08/25/18 06:00 08/25/18 06:00 Assessment and Plan (1) Varicella-zoster infection Status: Acute (2) Essential (primary) hypertension Status: Acute (3) Generalized anxiety disorder Status: Acute
[2018-08-31] MEDS: Pantoprazole 40 mg EC Tab PO SCH (16:49)
[2018-09-01] MEDS: Pantoprazole 40 mg EC Tab PO SCH (08:08)
[2018-09-02] MEDS: Pantoprazole 40 mg EC Tab PO SCH (09:12)
--- NOTE | 2018-09-02 09:51 | CP.PCM.PN ---
Subjective - Date & Time of Evaluation Date of Evaluation: 09/02/18 Time of Evaluation: 09:10 - Subjective Subjective: The patient has developed a mild degree of pedal edema since her diuretics were discontinued a few days back. The nurse alerted me yesterday that she had noticed some pedal edema. The patient has ambulated a fair amount in the corridor without complaining of any shortness of breath. Physical examination shows a minimal amount of pitting edema over both lower extremities with significant wrinkling of skin indicating that a much significant pedal edema and had existed before. Her blood pressure was 110/70 mmHg with her JVP not elevated and no rales. No diuretic was initiated at this point. Objective - Vital Signs/Intake and Output Vital Signs (last 24 hours): Temp Pulse Resp BP Pulse Ox 97.8 F 63 20 115/71 96 09/02/18 08:28 09/02/18 08:28 09/02/18 08:28 09/02/18 08:28 09/02/18 08:28 Intake and Output: 09/02/18 09/02/18 06:59 18:59 Output Total 500 Balance -500 - Medications Medications: Current Medications Acetaminophen (Tylenol 325mg Tab) 650 mg PO Q6 PRN PRN Reason: Pain, moderate (4-7) Last Admin: 09/01/18 21:52 Dose: 650 mg Aspirin (Aspirin Chewable) 81 mg PO DAILY [facility] Last Admin: 09/02/18 09:11 Dose: 81 mg Clopidogrel Bisulfate (Plavix) 75 mg PO DAILY [facility] Last Admin: 09/02/18 09:11 Dose: 75 mg Docusate Sodium (Colace) 100 mg PO TID [facility] Last Admin: 09/02/18 09:11 Dose: 100 mg Gabapentin (Neurontin) 100 mg PO TID [facility] Last Admin: 09/02/18 09:11 Dose: 100 mg Lactulose (Enulose) 20 gm PO DAILY PRN PRN Reason: Constipation Last Admin: 08/30/18 17:18 Dose: 20 gm Pantoprazole Sodium (Protonix Ec Tab) 40 mg PO DAILY [facility] Last Admin: 09/02/18 09:12 Dose: 40 mg - Labs Labs: 08/25/18 06:00 08/25/18 06:00
[2018-09-03 08:23] VITALS: RESP 20
[2018-09-03] MEDS: Pantoprazole 40 mg EC Tab PO SCH (08:29)
[2018-09-03 13:54] LABS: HEMOGLOBIN 11.9 g/dL (12.0-16.0); MEAN CORPUSCULAR HEMOGLOBIN 33.6 pg (27.0-31.0); MEAN CORPUSCULAR HGB CONC 32.6 g/dL (33.0-37.0); RBC 3.55 Mil/uL (3.80-5.20); RED CELL DISTRIBUTION WIDTH 16.1 % (11.5-14.5); WHITE BLOOD COUNT 5.1 K/uL (4.8-10.8)
[2018-09-03 14:09] LABS: CALCIUM 9.7 mg/dL (8.4-10.2)
[2018-09-04 07:42] VITALS: BP 109/56; PULSE 65; TEMP 98.5; O2SAT 95
[2018-09-04] MEDS: Pantoprazole 40 mg EC Tab PO SCH (08:29)
--- NOTE | 2018-09-04 10:53 | CP.PCM.PN ---
Subjective - Date & Time of Evaluation Date of Evaluation: 09/04/18 Time of Evaluation: 10:00 - Subjective Subjective: pt has agreed to go to [facility] for d/c today Objective - Vital Signs/Intake and Output Vital Signs (last 24 hours): Temp Pulse Resp BP Pulse Ox 98.5 F 65 20 109/56 L 95 09/04/18 07:41 09/04/18 07:41 09/04/18 07:41 09/04/18 08:28 09/04/18 07:41 - Medications Medications: Current Medications Acetaminophen (Tylenol 325mg Tab) 650 mg PO Q6 PRN PRN Reason: Pain, moderate (4-7) Last Admin: 09/01/18 21:52 Dose: 650 mg Aspirin (Aspirin Chewable) 81 mg PO DAILY [facility] Last Admin: 09/04/18 08:28 Dose: 81 mg Clopidogrel Bisulfate (Plavix) 75 mg PO DAILY [facility] Last Admin: 09/04/18 08:28 Dose: 75 mg Docusate Sodium (Colace) 100 mg PO TID [facility] Last Admin: 09/04/18 08:28 Dose: 100 mg Furosemide (Lasix) 40 mg PO DAILY [facility] Last Admin: 09/04/18 08:28 Dose: 40 mg Gabapentin (Neurontin) 100 mg PO TID [facility] Last Admin: 09/04/18 08:28 Dose: 100 mg Lactulose (Enulose) 20 gm PO DAILY PRN PRN Reason: Constipation Last Admin: 09/03/18 12:32 Dose: 20 gm Pantoprazole Sodium (Protonix Ec Tab) 40 mg PO DAILY [facility] Last Admin: 09/04/18 08:29 Dose: 40 mg - Labs Labs: 09/03/18 13:19 09/03/18 13:19 Assessment and Plan (1) Varicella-zoster infection Status: Acute (2) Essential (primary) hypertension Status: Acute (3) Generalized anxiety disorder Status: Acute
--- NOTE | 2018-09-04 10:55 | CP.PCM.DIS ---
Provider - Provider Date of Admission: 08/24/18 16:17 Attending physician: Beto Jamison MD Consults: 08/24/18 17:35 Case Management Referral Routine Comment: Physician Instructions: Reason For Exam: Reason for Referral: Discharge Planning 08/24/18 17:45 Infectious Disease Consult Routine Comment: Consulting Provider: Dwayne Lomeli Consulting Physician: Dwayne Lomeli Reason for Consult: f/u from [facility]; Dx: diverticulitis, shingles 08/24/18 21:01 Nursing Referral for Wound Care Routine Comment: Physician Instructions: Reason For Exam: new admission from [facility]; sacral redness Time Spent in preparation of Discharge (in minutes): 33 Diagnosis - Discharge Diagnosis (1) Varicella-zoster infection Status: Acute (2) Essential (primary) hypertension Status: Acute (3) Generalized anxiety disorder Status: Acute Hospital Course - Lab Results Lab Results: Most Recent Lab Values WBC 5.1 K/uL (4.8-10.8) 09/03/18 13:19 RBC 3.55 Mil/uL (3.80-5.20) L 09/03/18 13:19 Hgb 11.9 g/dL (12.0-16.0) L 09/03/18 13:19 Hct 36.6 % (34.0-47.0) 09/03/18 13:19 MCV 103.0 fl (81.0-99.0) H 09/03/18 13:19 MCH 33.6 pg (27.0-31.0) H 09/03/18 13:19 MCHC 32.6 g/dL (33.0-37.0) L 09/03/18 13:19 RDW 16.1 % (11.5-14.5) H 09/03/18 13:19 Plt Count 116 K/uL (130-400) L D 09/03/18 13:19 Sodium 139 mmol/l (132-148) 09/03/18 13:19 Potassium 4.7 MMOL/L (3.6-5.0) 09/03/18 13:19 Chloride 107 mmol/L (98-107) 09/03/18 13:19 Carbon Dioxide 23 mmol/L (22-30) 09/03/18 13:19 Anion Gap 14 (10-20) 04/15/19 13:19 BUN 25 mg/dl (7-17) H 09/03/18 13:19 Creatinine 1.3 mg/dl (0.7-1.2) H 09/03/18 13:19 Est GFR ( Amer) 47 09/03/18 13:19 Est GFR (Non-Af Amer) 39 09/03/18 13:19 Random Glucose 121 mg/dL (65-105) H 09/03/18 13:19 Calcium 9.7 mg/dL (8.4-10.2) 09/03/18 13:19 - Hospital Course Hospital Course: 87 y/o w/f admitted with abdominal pain found to have UTI & Herpes Zoster of laft flank and abdominal area Txed w/ cipro and Acyclovir Pt has had chronic UTI over years has indwelling catheter at home 2* Neurogenic bladder EKG: NSR PMH: Coronary Artery disease s/p cardiac catheterization 02/21/2011 Chronic urinary tract infection with hematuria Neurogenic Bladder indwelling Calvert Catheter Gout Chronic congestive heart failure Left sided Systolic Anxiety Hypertension Chronic maxillary sinusitis CRF stage 3 - 4 Cellulitis of RLE Discharge Exam - Head Exam Head Exam: NORMOCEPHALIC Discharge Plan - Follow Up Plan Condition: GOOD Disposition: REHAB FACILITY/REHAB UNIT
== END 2018-09-04 16:50 | DRG 866 ==
LOC: H.TCU 16:17
PROVIDERS: ADMIT Internal Medicine Cardiovascular Disease; ATTEND Internal Medicine Cardiovascular Disease
PROC: F07M6FZ Therapeutic Exercise Treatment of Musculoskeletal System - Whole Body using Assistive, Adaptive, Supportive or Protective Equipment (ICD-10-PCS; principal; 2018-08-24)
PROC: F08Z4FZ Home Management Treatment using Assistive, Adaptive, Supportive or Protective Equipment (ICD-10-PCS; 2018-08-24)
DX: B01.9 Varicella without complication (principal); I13.0 Hypertensive heart and chronic kidney disease with heart failure and stage 1 through stage 4 chronic kidney disease, or unspecified chronic kidney disease; I50.22 Chronic systolic (congestive) heart failure; K57.92 Diverticulitis of intestine, part unspecified, without perforation or abscess without bleeding; N39.0 Urinary tract infection, site not specified; L03.115 Cellulitis of right lower limb; N18.4 Chronic kidney disease, stage 4 (severe); B02.9 Zoster without complications; E03.9 Hypothyroidism, unspecified; E11.22 Type 2 diabetes mellitus with diabetic chronic kidney disease; E78.00 Pure hypercholesterolemia, unspecified; F41.1 Generalized anxiety disorder; I25.10 Atherosclerotic heart disease of native coronary artery without angina pectoris; J32.0 Chronic maxillary sinusitis; J44.9 Chronic obstructive pulmonary disease, unspecified; N31.9 Neuromuscular dysfunction of bladder, unspecified; Z87.440 Personal history of urinary (tract) infections; Z90.49 Acquired absence of other specified parts of digestive tract; Z95.5 Presence of coronary angioplasty implant and graft; F32.9 Major depressive disorder, single episode, unspecified; F41.9 Anxiety disorder, unspecified; H26.9 Unspecified cataract; K29.70 Gastritis, unspecified, without bleeding; M10.9 Gout, unspecified; M19.90 Unspecified osteoarthritis, unspecified site; R31.9 Hematuria, unspecified